=== PATIENT | male | born 1960 | race Caucasian/White ===

== ENCOUNTER 2020-11-09 00:24 | Outpatient (CLI) | payer BC, SELFPAY ==
[2020-11-09 19:18] LABS: SARS-CoV-2 RNA PCR Negative
== END 2020-11-09 00:25 | disposition home or self-care (01) ==
LOC: ANHCOVIDDT 00:28
PROVIDERS: PCP Family Medicine; Visit Provider Internal Medicine Gastroenterology
DX: Z01.812 Encounter for preprocedural laboratory examination (principal); Z20.822 Contact with and (suspected) exposure to COVID-19
CPT/HCPCS: C9803; U0003; U0005

== ENCOUNTER 2020-11-12 02:00 | Day surgery (SDC) | payer BC, SELFPAY ==
[2020-11-04 08:13] VITALS: BMI 29.2
[2020-11-12 11:31] VITALS: BP 120/82; PULSE 64; RESP 18; TEMP 36.8; O2SAT 96; BMI 29.1
[2020-11-12] MEDS: LACTATED RINGERS 1,000 ML 150 ML IV CONT (11:48)
--- NOTE | 2020-11-12 11:59 | WPDANESEPPF ---
Anes - Initial Pre Proc Eval Procedure: Operation Date: 11/12/20 12:45 Proposed Procedures p Esophagogastroduodenoscopy & Colonoscopy - Adam Nino MD Date/Time: 11/12/20 11:59 Surgeon: Adam Nino MD Pre Op Diagnosis: GERD,Abdominal Pain, Loose Stools Patient Data Age: 60 Gender: M Height: 6 ft Weight: 97.5 kg Last Vital Signs Temp 98.2 F 11/12/20 11:31 Pulse 64 11/12/20 11:31 Resp 18 11/12/20 11:31 BP 120/82 11/12/20 11:31 Pulse Ox 96 11/12/20 11:31 Allergies Allergy/AdvReac Type Severity Reaction Status Date / Time No Known Allergies Allergy Mild Verified 11/12/20 11:30 Home Medications Medication Instructions Recorded Confirmed Type metoprolol succinate 50 mg capsule 50 mg PO DAILY 12/11/19 11/12/20 History sprinkle, ext. release 24 hr rosuvastatin 10 mg tablet 20 mg PO DAILY tablet 03/31/20 11/04/20 History finasteride 5 mg tablet 5 mg PO DAILY #90 tablet 06/22/20 11/04/20 Rx tadalafil 5 mg tablet See Rx Instructions .ROUTE 07/15/20 11/04/20 Rx .COMPLEX #30 tablet omeprazole 40 mg capsule,delayed 40 mg PO DAILY #90 cap 07/21/20 11/04/20 Rx release sodium,potassium,mag sulfates See Rx Instructions .ROUTE 11/03/20 Rx [Suprep Bowel Prep Kit] .COMPLEX #1 ml Patient hx anesthesia problems: none Family hx anesthesia problems: none PMFSH Past Medical History Medical History (Updated 11/01/20 @ 15:37 by ITALO SalgueroN-C) Arthritis Benign prostatic hyperplasia with nocturia Encounter for screening colonoscopy Gastro-esophageal reflux disease without esophagitis High cholesterol Hypertension Mitral valve prolapse VINAY on CPAP Other and unspecified hyperlipidemia Surgical History Surgical History History of cholecystectomy (Unknown) 1990s Family History Family History Sibling Family history of malignant melanoma Family history of malignant neoplasm Father Family history of malignant neoplasm of esophagus Family history of malignant neoplasm Other Diabetes mellitus Social History Social History Smoking status: Never smoker Second hand tobacco smoke exposure: No Alcohol intake: current Alcohol use details: socially Substance use: never Substance use type: does not use Living arrangements: alone Gender identity (if verbalized by the patient): Male Spiritual care concerns: No Anes - Eval Final PreProcedure Day of Procedure 11/12/20 11:59 Patient weight: obese Heart: regular rate and rhythm Lungs: clear to auscultation Airway: Mallampati scale class III Neurological: alert and oriented Last oral intake: >/= 8 hours ASA classification: III Emergent: no Anesthetic plan: proceed Anesthesia type and monitoring: general GIVS and standard monitoring Informed Consent: The patient's anesthetic plan and its attendant risks and benefits were discussed with the patient/family/POA. Questions were solicited and answers provided to the satisfaction of the patient/family/POA.
--- NOTE | 2020-11-12 12:08 | WPDHPUPDATE1 ---
History and Physical Update Update Date/Time: 11/12/20 12:08 History and Physical has been reviewed, including an updated exam of the patient. There are NO changes in the patient's condition. Risks, benefits, and alternatives have been discussed and questions answered. Patient agrees to proceed with procedure.
[2020-11-12 12:32] VITALS: BP 110/72; PULSE 64; RESP 21; O2SAT 97
[2020-11-12 12:42] VITALS: BP 105/71; PULSE 60; RESP 15; O2SAT 97
[2020-11-12 12:52] VITALS: BP 106/70; PULSE 60; RESP 22; O2SAT 97
== END 2020-11-12 13:23 | disposition home or self-care (01) ==
PROVIDERS: PCP Family Medicine; Visit Provider Internal Medicine Gastroenterology
PROC: 0DJ08ZZ Inspection of Upper Intestinal Tract, Via Natural or Artificial Opening Endoscopic (ICD-10-PCS; CPT 43235; principal; 2020-11-12 12:45)
DX: Z12.11 Encounter for screening for malignant neoplasm of colon (principal); K57.30 Diverticulosis of large intestine without perforation or abscess without bleeding; K64.8 Other hemorrhoids; K29.50 Unspecified chronic gastritis without bleeding; K44.9 Diaphragmatic hernia without obstruction or gangrene; K21.9 Gastro-esophageal reflux disease without esophagitis; N40.0 Benign prostatic hyperplasia without lower urinary tract symptoms; E78.00 Pure hypercholesterolemia, unspecified; I10 Essential (primary) hypertension; I34.1 Nonrheumatic mitral (valve) prolapse; G47.33 Obstructive sleep apnea (adult) (pediatric); E78.5 Hyperlipidemia, unspecified; E66.9 Obesity, unspecified; Z68.29 Body mass index [BMI] 29.0-29.9, adult
CPT/HCPCS: 45380; 43239; 88305; J2704; J7120

== ENCOUNTER 2021-09-12 01:36 | Day surgery (SDC) | payer BC, SELFPAY ==
[2021-08-25 14:46] VITALS: BMI 29.7
[2021-09-12 11:16] VITALS: BMI 30.3
[2021-09-12] MEDS: LACTATED RINGERS 1,000 ML 150 ML IV CONT (11:17)
--- NOTE | 2021-09-12 12:15 | WPDANESEPPF ---
Anes - Initial Pre Proc Eval Procedure: Operation Date: 09/12/21 12:30 Proposed Procedures p Esophagogastroduodenoscopy - Adam Nino MD Date/Time: 09/12/21 12:15 Surgeon: Adam Nino MD Pre Op Diagnosis: GERD Patient Data Age: 61 Gender: M Height: 1.83 m Weight: 101.4 kg Allergies Allergy/AdvReac Type Severity Reaction Status Date / Time No Known Allergies Allergy Mild Verified 09/12/21 11:14 Home Medications Medication Instructions Recorded Confirmed Type rosuvastatin 10 mg tablet 20 mg PO DAILY tablet 03/31/20 09/12/21 History omeprazole 40 mg capsule,delayed 40 mg PO DAILY #90 cap 04/20/21 09/12/21 Rx release finasteride 5 mg tablet 5 mg PO DAILY #90 tablet 07/07/21 09/12/21 Rx metoprolol succinate 25 mg 25 mg PO DAILY 07/21/21 09/12/21 History tablet,extended release 24 hr dicyclomine 10 mg capsule 10 mg PO BID PRN #60 cap 08/18/21 09/12/21 Rx tadalafil 5 mg tablet 5 mg PO DAILY #30 tablet 08/22/21 09/12/21 Rx Patient hx anesthesia problems: none Family hx anesthesia problems: none Results Review: All pre-operative results and documents have been reviewed as part of the pre-operative evaluation. [facility] Past Medical History Medical History (Updated 08/18/21 @ 12:10 by Adam Nino MD) Abdominal pain Arthritis Benign prostatic hyperplasia with nocturia Bloating Colon cancer screening Colon, diverticulosis Gastro-esophageal reflux disease without esophagitis High cholesterol Hypertension IBS (irritable bowel syndrome) Mitral valve prolapse VINAY on CPAP Osteoarthritis Other and unspecified hyperlipidemia Prediabetes Surgical History Surgical History History of cholecystectomy (Unknown) 1990s Family History Family History Sibling Family history of malignant melanoma Family history of malignant neoplasm Father Family history of malignant neoplasm of esophagus Family history of malignant neoplasm Other Diabetes mellitus Social History Social History Second hand tobacco smoke exposure: No Alcohol intake: current Alcohol use details: socially Substance use: never Substance use type: does not use Living arrangements: with family Gender identity (if verbalized by the patient): Male Spiritual care concerns: No Anes - Eval Final PreProcedure Day of Procedure 09/12/21 12:15 Patient weight: obese Heart: regular rate and rhythm Lungs: clear to auscultation Airway: Mallampati scale class III Neurological: alert and oriented Last oral intake: >/= 8 hours ASA classification: III Emergent: no Anesthetic plan: proceed Anesthesia type and monitoring: general and standard monitoring Results Review: All pre-operative results and documents have been reviewed as part of the pre-operative evaluation. Informed Consent: The patient's anesthetic plan and its attendant risks and benefits were discussed with the patient/family/POA. Questions were solicited and answers provided to the satisfaction of the patient/family/POA.
[2021-09-12 12:41] VITALS: BP 115/80; PULSE 63; RESP 14; O2SAT 97
[2021-09-12 12:51] VITALS: BP 110/81; PULSE 55; RESP 14
[2021-09-12 13:01] VITALS: BP 119/77; PULSE 54; RESP 14
== END 2021-09-12 13:10 | disposition home or self-care (01) ==
PROVIDERS: PCP Family Medicine; Visit Provider Internal Medicine Gastroenterology
PROC: 0DJ08ZZ Inspection of Upper Intestinal Tract, Via Natural or Artificial Opening Endoscopic (ICD-10-PCS; CPT 43235; principal; 2021-09-12 12:30)
DX: R14.0 Abdominal distension (gaseous) (principal); I10 Essential (primary) hypertension; E78.00 Pure hypercholesterolemia, unspecified; K21.9 Gastro-esophageal reflux disease without esophagitis; I34.1 Nonrheumatic mitral (valve) prolapse; K58.9 Irritable bowel syndrome, unspecified; N40.1 Benign prostatic hyperplasia with lower urinary tract symptoms; R35.1 Nocturia; E78.49 Other hyperlipidemia; R73.03 Prediabetes; E66.9 Obesity, unspecified; Z68.30 Body mass index [BMI] 30.0-30.9, adult
CPT/HCPCS: 43235; J2704; J7120

== ENCOUNTER 2021-09-28 12:31 | Outpatient (CLI) | payer BC, SELFPAY ==
--- NOTE | ~2021-09-28 | CT_ITS ---
EXAMINATION: CT soft tissue neck w con DATE: 09/28/2021 12:56 INDICATION: Localized swelling, mass, and lump, unspecified. TECHNIQUE: Computed tomography (CT) of the neck was performed with 75 mL Omnipaque-350 intravenous co ntrast. Automated exposure control and iterative reconstruction technique were employed. The dose-sona gth product was 587.56 mGy-cm. COMPARISON: Neck CT 08/08/2004 FINDINGS: There are no pathologically enlarged lymph nodes. There is mild plaque in the proximal inte rnal carotid arteries with 0% stenosis relative to normal distal artery lumen diameters. There is mil d mucosal thickening in the ethmoid sinuses. The mastoid air cells are normal. There is mild cervical spondylosis. IMPRESSION: 1. No abnormal neck mass or lymphadenopathy. Reviewed, dictated and finalized at location A. LERATOR TECHNICIAN
[2021-09-28 12:50] LABS: Estimated Glomerular Filt Rate > 60
== END 2021-09-28 12:32 | disposition home or self-care (01) ==
LOC: ANHIMG 12:36
PROVIDERS: PCP Family Medicine; Visit Provider Nurse Practitioner Family
DX: R22.1 Localized swelling, mass and lump, neck (principal)
CPT/HCPCS: 70491; Q9967

== ENCOUNTER 2021-10-27 14:07 | Outpatient (CLI) | payer BC, SELFPAY ==
--- NOTE | ~2021-10-27 | CT_ITS ---
EXAMINATION: CT abdomen pelvis w con INDICATION: Abdominal pain and abdominal distention TECHNIQUE: Computed tomographic images of the abdomen and pelvis were obtained after the administrati on of 100 cc of Omnipaque 350 intravenous contrast. The dose-length product (DLP) was 891.70 mGy-cm. Automated exposure control and iterative reconstruction technique were employed. COMPARISON: None available FINDINGS: Minimal dependent atelectasis is present in the lung bases. The heart size is normal. The g allbladder is surgically absent. There is mild enlargement of the common bile duct and central intrah epatic ducts which is likely due to post cholecystectomy state. The liver is diffusely low in attenua tion when compared with the spleen, consistent with hepatic steatosis. There is a 5.4 x 5.3 cm hetero geneous mass of the upper pole of the spleen. The pancreas and adrenal glands are normal. There is a 2.1 cm cyst of the left kidney. The right kidney is unremarkable. No pathologically enlarged abdomina l or pelvic lymph nodes are identified. There is no free intraperitoneal gas or evidence of bowel obs truction. Colonic diverticulosis is present without evidence of diverticulitis. There is mild lumbar spondylosis. IMPRESSION: 1. No CT correlate for the patient's symptoms. 2. Indeterminate 5.4 cm mass in the upper pole of the spleen. If there is a history of malignancy, fu rther evaluation with PET versus MRI versus biopsy would be recommended. In the absence of known dennis gnancy, follow-up with MRI without and with contrast in six months is recommended. Reviewed, dictated and finalized at location F. NDER WORKER IMPRESSION: 1. No CT correlate for the patient's symptoms. 2. Indeterminate 5.4 cm mass in the upper pole of the spleen. If there is a his tory of malignancy, further evaluation with PET versus MRI versus biopsy would be recommended. In the absence of known malignancy, follow-up with MRI without and with contrast in six months is recommended.
== END 2021-10-27 14:08 | disposition home or self-care (01) ==
LOC: ANHIMG 14:09
PROVIDERS: PCP Family Medicine; Visit Provider Internal Medicine Gastroenterology
DX: R10.9 Unspecified abdominal pain (principal); R14.0 Abdominal distension (gaseous)
CPT/HCPCS: 74177; Q9967

== ENCOUNTER 2021-11-08 06:57 | Outpatient (CLI) | payer BC, SELFPAY ==
--- NOTE | ~2021-11-08 | MR_ITS ---
EXAMINATION: MR abdomen wo/w con DATE: 11/08/2021 08:33 INDICATION: Splenic mass. TECHNIQUE: Magnetic resonance imaging (MRI) of the abdomen was performed without and with 19 mL Multi Portillo intravenous contrast. Sequences included coronal T2-weighted FS FSE, coronal and axial FS FIEST A, axial T2-weighted FSE, coronal LAVA-flex, axial STIR FSE, axial DWI, axial dual-echo T1-weighted F SPGR, and axial LAVA. Postcontrast sequences included coronal LAVA-flex and a time course of axial LA VA. COMPARISON: CT abdomen and pelvis 10/27/2021, chest CT 01/26/2004 FINDINGS: There is diffuse hepatic steatosis. The gallbladder is absent. There is a 5.5 cm hyperenhancing mass in the spleen. The pancreas and adrenal glands are normal. There are cysts in the kidneys measuring u p to 2.0 cm on the left. There are no dilated loops of bowel. There are no pathologically enlarged ly mph nodes. There is no free intraperitoneal fluid. IMPRESSION: 1. 5.5 cm hyperenhancing splenic mass, new from 01/26/2004, which may be benign or malignant. PET/CT i s recommended to decide whether or not to biopsy. Reviewed, dictated and finalized at location A. ER ASSEMBLER IMPRESSION: 1. 5.5 cm hyperenhancing splenic mass, new from 01/26/2004, which may be benign or malignant. PET/CT is recommended to decide whether or not to biopsy.
== END 2021-11-08 06:58 | disposition home or self-care (01) ==
PROVIDERS: PCP Family Medicine; Visit Provider Nurse Practitioner Family
DX: R93.5 Abnormal findings on diagnostic imaging of other abdominal regions, including retroperitoneum (principal)
CPT/HCPCS: 74183; A9577

== ENCOUNTER 2021-12-01 08:29 | Outpatient (CLI) | payer BC, SELFPAY ==
--- NOTE | ~2021-12-01 | CT_ITS ---
EXAMINATION:CT diagnostic chest w con DATE: 12/01/2021 09:01 INDICATION: Splenic mass. TECHNIQUE: Computed tomography (CT) of the chest was performed with 75 mL Omnipaque 350 intravenous c ontrast. Automated exposure control and iterative reconstruction technique were employed. The dose-le ngth product (DLP) was 323.84 mGy-cm. COMPARISON: CT abdomen and pelvis 10/27/2021, MR abdomen 11/08/21, chest CT 01/26/04 FINDINGS: There is mild scarring at left lung apex. There is mild atelectasis bilaterally. Calcified bilateral lung nodules are consistent with old granulomatous disease. No pleural effusion. The heart size is normal. No pericardial effusion. There is ectasia of ascending aorta measuring 4.3 cm. There is a 5.2 cm hyperenhancing mass in the spleen. There are changes of cholecystectomy. There are bridgi ng endplate osteophytes at multiple levels in the spine, consistent with diffuse idiopathic skeletal hyperostosis (DISH). IMPRESSION: 1. 5.2 cm hyperenhancing splenic mass, new from 01/26/2004, which may be benign or malignant. PET/CT i s recommended to decide whether or not to biopsy. Reviewed, dictated and finalized at location A. EL DRIER IMPRESSION: 1. 5.2 cm hyperenhancing splenic mass, new from 01/26/2004, which may be benign or malignant. PET/CT is recommended to decide whether or not to biopsy.
[2021-12-01 08:53] LABS: Estimated Glomerular Filt Rate > 60
== END 2021-12-01 08:30 | disposition home or self-care (01) ==
LOC: ANHIMG 08:33
PROVIDERS: PCP Family Medicine; Visit Provider Internal Medicine Hematology & Oncology
DX: R16.1 Splenomegaly, not elsewhere classified (principal)
CPT/HCPCS: 71260; Q9967

== ENCOUNTER 2022-04-18 18:04 | Emergency (ER) | payer BC, SELFPAY ==
[2022-04-18 18:11] VITALS: BP 134/81; PULSE 84; RESP 16; TEMP 36.5; O2SAT 97
--- NOTE | 2022-04-18 18:15 | ED.SKABFB ---
HPI - Skin/Abscess/Foreign Bdy General Chief complaint: Skin/Abscess/Foreign Body Stated complaint: Rash Time Seen by Provider: 04/18/22 18:16 Source: patient, RN notes reviewed and old records reviewed Mode of arrival: ambulatory Limitations: no limitations History of Present Illness HPI narrative: 62 year old male who presents to [facility] with complaints of rash to his upper chest across and into neck and right upper back small red raised lesion and right lower back red raised lesion. Rash is stated to be itchy, . Patient reports that he was mowing yesterday for 2 hours and noted rash last evening. may of been exposed to some environmental element. Patient denies any new medications, foods, laundry soap, lotions or any soaps MD complaint: rash Onset (ago): day(s) (1) Related Data Home Medications Medication Instructions Recorded Confirmed rosuvastatin 10 mg tablet 20 mg PO DAILY 03/31/20 04/18/22 metoprolol succinate 25 mg 25 mg PO BID 09/21/21 04/18/22 tablet,extended release 24 hr Allergies Allergy/AdvReac Type Severity Reaction Status Date / Time No Known Allergies Allergy Mild Verified 04/18/22 18:16 Review of Systems Review of Systems: CONSTITUTIONAL: Denies fever, chills, or sweats. EYES: Denies visual changes, redness, or discharge. ENT: Denies rhinorrhea, congestion, sore throat, or otalgia. CARDIOVASCULAR: Denies chest pain, palpitations, or edema. RESPIRATORY: Denies cough or dyspnea. GASTROINTESTINAL: Denies abdominal pain, nausea, vomiting, or diarrhea. GENITOURINARY: Denies dysuria or hematuria. SKIN: Positive for rash and itching. MUSCULOSKELETAL: Denies back pain, joint pain, or myalgia. NEUROLOGIC: Denies headache, numbness, or weakness. PSYCHIATRIC: Denies anxiety or depression. All systems reviewed & are unremarkable except as noted in HPI and below PMFSH Past Medical History Medical History Benign prostatic hyperplasia with nocturia Colon, diverticulosis Gastro-esophageal reflux disease without esophagitis Hypertension IBS (irritable bowel syndrome) Mitral valve prolapse VINAY on CPAP Osteoarthritis Other and unspecified hyperlipidemia Prediabetes Splenic mass Surgical History Surgical History History of cholecystectomy (Unknown) 1990s Family History Family History Sibling Family history of malignant melanoma Family history of malignant neoplasm Father Family history of malignant neoplasm of esophagus Family history of malignant neoplasm Other Diabetes mellitus Social History Social History Smoking status: Never smoker Second hand tobacco smoke exposure: No Alcohol intake: current Alcohol use details: socially Substance use: never Substance use type: does not use Gender identity (if verbalized by the patient): Male Spiritual care concerns: No Comments At time of signature, agree with nursing past medical, surgical, social and family history. There is no relevant family history pertinent to the presenting complaint Exam Narrative: GENERAL: Well-appearing, well-nourished, and in no acute distress. HEAD: Normocephalic, atraumatic. EYES: PERRLA and EOMI. ENT: Nares clear, no rhinorrhea or epistaxis. Mucous membranes moist.TM's normal with good light reflex, throat pink with no lesions or exudates or tonsil swelling NECK: Supple.no lymphadenopathy CHEST: Clear to auscultation. No respiratory distress.No tachypnea, SAO2 100% on room air HEART: Regular rate and rhythm. No murmur heard. Normal peripheral pulses. ABDOMEN: Soft, nontender, nondistended, normal active bowel sounds EXTREMITIES: Normal range of motion. No edema. SKIN: Warm, dry, no rash.2 macular lesions noted to right upper and mid back, red macular papular rash noted acros
[2022-04-18 18:20] VITALS: BP 134/89; PULSE 107; RESP 20; TEMP 36.6; O2SAT 100
== END 2022-04-18 18:42 | disposition home or self-care (01) ==
PROVIDERS: Emergency Provider Registered Nurse; PCP Family Medicine
DX: L23.9 Allergic contact dermatitis, unspecified cause (principal); N40.0 Benign prostatic hyperplasia without lower urinary tract symptoms; K21.9 Gastro-esophageal reflux disease without esophagitis; I10 Essential (primary) hypertension; I34.1 Nonrheumatic mitral (valve) prolapse; G47.33 Obstructive sleep apnea (adult) (pediatric); M19.90 Unspecified osteoarthritis, unspecified site; R73.03 Prediabetes
CPT/HCPCS: 99213; G0463

== ENCOUNTER 2022-06-26 11:18 | Emergency (ER) | payer BC, SELFPAY ==
[2022-06-26 11:34] VITALS: BP 126/78; PULSE 62; RESP 18; TEMP 36.6; O2SAT 96
--- NOTE | 2022-06-26 11:57 | ED.URI ---
HPI - URI/Sore Throat General Chief Complaint: Neck Pain/Injury Stated Complaint: Sore Throat,Neck Swelling Time Seen by Provider: 06/26/22 11:57 Source: patient, RN notes reviewed and old records reviewed Mode of arrival: ambulatory Limitations: no limitations History of Present Illness HPI Narrative: 62 year old male with complaints of sore throat and neck swelling since yesterday morning with tenderness along right jaw. Patient reports that last Sunday his teeth felt sore and his teeth were real sensitive to cold and hot. He reports that he thought maybe he had a bad tooth but he sees dentist regularly. Patient report that he has had progressive increase in swelling of his neck and along his jaw since yesterday morning with discomfort along right side of face and jaw area. Patient also states that his throat is sore, denies any difficulty with swallowing or any difficulty with his breathing. MD elicited complaint: sore throat and other (neck and jaw swelling) Onset (ago): day(s) (inés right sided dental discomfort starting on the ,neck and face swelling the 18) Pain scale (0-10): 9 Treatments prior to arrival: acetaminophen Related Data Home Medications Medication Instructions Recorded Confirmed rosuvastatin 10 mg tablet 20 mg PO DAILY 03/31/20 06/26/22 metoprolol succinate 25 mg 25 mg PO BID 09/21/21 06/26/22 tablet,extended release 24 hr Allergies Allergy/AdvReac Type Severity Reaction Status Date / Time No Known Allergies Allergy Mild Verified 06/26/22 12:01 Review of Systems Review of Systems: CONSTITUTIONAL: Denies fever, chills, or sweats. EYES: Denies visual changes, redness, or discharge. ENT: Denies rhinorrhea, congestion, positive for sore throat, denies otalgia.states right jaw pain CARDIOVASCULAR: Denies chest pain, palpitations, or edema. RESPIRATORY: Denies cough or acute dyspnea. GASTROINTESTINAL: Denies abdominal pain, nausea, vomiting, or diarrhea. GENITOURINARY: Denies dysuria or hematuria. SKIN: Denies rash or itching. MUSCULOSKELETAL: Denies back pain, joint pain, or myalgia. NEUROLOGIC: Denies headache, numbness, or weakness. PSYCHIATRIC: Denies anxiety or depression. All systems reviewed & are unremarkable except as noted in HPI and below [facility] Past Medical History Medical History Benign prostatic hyperplasia with nocturia Colon, diverticulosis Gastro-esophageal reflux disease without esophagitis Hypertension IBS (irritable bowel syndrome) Mitral valve prolapse VINAY on CPAP Osteoarthritis Other and unspecified hyperlipidemia Prediabetes Splenic mass Surgical History Surgical History History of cholecystectomy (Unknown) 1990s Family History Family History Sibling Family history of malignant melanoma Family history of malignant neoplasm Father Family history of malignant neoplasm of esophagus Family history of malignant neoplasm Other Diabetes mellitus Social History Social History Smoking status: Never smoker Second hand tobacco smoke exposure: No Alcohol intake: current Alcohol use details: socially Substance use: never Substance use type: does not use Gender identity (if verbalized by the patient): Male Spiritual care concerns: No Comments At time of signature, agree with nursing past medical, surgical, social and family history. There is no relevant family history pertinent to the presenting complaint Exam Narrative: GENERAL: Well-appearing, well-nourished, and in some acute distress. HEAD: Normocephalic, atraumatic. EYES: PERRLA and EOMI. ENT: Nares clear, no rhinorrhea or epistaxis. Mucous membranes moist. TMs normal bilaterally, throat swollen with uvula midline and red, unable to view tonsils, unable to open mouth
[2022-06-26] MEDS: methylPREDNISolone ACETATE 80 MG/ML VIAL IM (12:25)
== END 2022-06-26 12:30 | disposition short-term general hospital (02) ==
LOC: EXPTROY 11:21
PROVIDERS: Emergency Provider Registered Nurse; PCP Family Medicine
DX: M79.9 Soft tissue disorder, unspecified (principal); I10 Essential (primary) hypertension; I34.1 Nonrheumatic mitral (valve) prolapse; G47.33 Obstructive sleep apnea (adult) (pediatric); R73.03 Prediabetes; N40.0 Benign prostatic hyperplasia without lower urinary tract symptoms; K21.9 Gastro-esophageal reflux disease without esophagitis
CPT/HCPCS: 96372; 99213; G0463; J1040

== ENCOUNTER 2022-06-26 12:49 | Emergency (ER) | payer BC, SELFPAY ==
--- NOTE | ~2022-06-26 | CT_ITS ---
EXAMINATION: CT soft tissue neck w con DATE: 06/26/2022 15:53 INDICATION: Right-sided throat and neck pain TECHNIQUE: Computed tomography (CT) of the neck was performed with 75 mL Omnipaque-350 intravenous co ntrast. The dose-length product was 609.59 mGy-cm. COMPARISON: 09/28/2021 FINDINGS: The thyroid gland is unremarkable. Enlarged, edematous right submandibular gland with surrounding inf lammatory change and surrounding prominent but not pathologically enlarged lymph nodes. The parotid g lands are symmetric. There is no cervical lymphadenopathy. There are no masses identified. The superior mediastinum is unremarkable. The airway is unremarkable. Parapharyngeal and pre-glottic fat planes are preserved. Normally enhancing neck arteries. The orbits are unremarkable. Ethmoid air cell mucosal thickening. Mild dependent atelectasis. Apical scarring. There is cervical spondy losis. IMPRESSION: 1. Infectious/inflammatory change in the right submandibular gland. 2. No other acute finding in the neck. Reviewed, dictated and finalized at location K.
[2022-06-26 13:16] VITALS: BP 143/76; PULSE 69; RESP 20; TEMP 36.8; O2SAT 95
[2022-06-26 14:00] VITALS: BP 137/80; PULSE 63; RESP 14; O2SAT 96
[2022-06-26 14:16] LABS: Basophils Percent Auto 0.6 % (0.2-1.2); Eosinophils Percent Auto 0.6 % (0-4.4); Hematocrit 44.5 % (42.0-52.0); Hemoglobin 15.1 g/dL (14.0-18.0); Immature Granulocyte Absolute 0.01 K/mm3 (0.00-0.031); Immature Granulocyte Percent A 0.1 % (0-0.5); Immature Platelet Fraction Pct 2.3 % (0.9-11.2); Lymphocytes Absolute Auto 0.97 K/mm3 (0.9-3.2); Lymphocytes Percent Auto 13.6 % (18.3-44.2); Mean Corpuscular HGB Conc 33.9 g/dl (32-36); Mean Corpuscular Hemoglobin 30.1 pg (26-34); Mean Corpuscular Volume 88.6 fl (80-100); Monocytes Absolute Auto 0.6 K/mm3 (0.1-0.6); Neutrophils Absolute Auto 5.5 K/mm3 (1.3-6.7); Neutrophils Percent Auto 77.1 % (45.5-73.1); Platelet Count Result 141 k/mm3 (150-375); Red Blood Count 5.02 M/mm3 (4.6-6.20); Red Cell Distribution Width 13.2 % (11.5-14.5); White Blood Count 7.1 K/mm3 (4.5-10.0)
--- NOTE | 2022-06-26 14:19 | ED.GENADULT ---
HPI - General Adult General Chief complaint: Neck Pain/Injury Stated complaint: right sided neck swelling Time Seen by Provider: 06/26/22 13:51 Source: RN notes reviewed History of Present Illness HPI narrative: Patient presents emergency department from urgent care for right-sided neck swelling and pain. States symptoms initially began approximately a week ago where he had pain in his right side of his neck going up into his right ear and into his jaw states he was seen by his PCP at that time was placed on antibiotics and steroids with improvement of the symptoms however returned 2 days ago states the pain is progressively gotten worse and that it does hurt to swallow states he is able to tolerate his own secretions he notes no shortness of breath states has had no fevers or chills states pain does radiate up into his ear and into his neck and feels a firmness in the right side of his neck he denies any chest pain patient was seen at the urgent care referred to the ER for further evaluation he was given a IM injection of Solu-Medrol at the urgent care Related Data Home Medications Medication Instructions Recorded Confirmed rosuvastatin 10 mg tablet 20 mg PO DAILY 03/31/20 06/26/22 metoprolol succinate 25 mg 25 mg PO BID 09/21/21 06/26/22 tablet,extended release 24 hr Allergies Allergy/AdvReac Type Severity Reaction Status Date / Time No Known Allergies Allergy Mild Verified 06/26/22 12:01 Review of Systems Review of Systems: Gen.: Denies fevers or chills Eyes: Denies eye pain or visual change ENT: See HPI Respiratory: Denies shortness of breath or cough CV: Denies chest pain or palpitations GI: Denies abdominal pain nausea, emesis Musculoskeletal: Denies back pain or muscle pain Neuro: Denies numbness, tingling, weakness or focal weakness Skin: Denies rash Except as documented, all other systems reviewed and negative [facility] Past Medical History Medical History Benign prostatic hyperplasia with nocturia Colon, diverticulosis Gastro-esophageal reflux disease without esophagitis Hypertension IBS (irritable bowel syndrome) Mitral valve prolapse VINAY on CPAP Osteoarthritis Other and unspecified hyperlipidemia Prediabetes Splenic mass Surgical History Surgical History History of cholecystectomy (Unknown) 1990s Family History Family History Sibling Family history of malignant melanoma Family history of malignant neoplasm Father Family history of malignant neoplasm of esophagus Family history of malignant neoplasm Other Diabetes mellitus Social History Social History Smoking status: Never smoker Second hand tobacco smoke exposure: No Alcohol intake: current Alcohol use details: socially Substance use: never Substance use type: does not use Gender identity (if verbalized by the patient): Male Spiritual care concerns: No Exam Narrative: APPEARANCE: No acute distress, nontoxic, resting in bed EYES: EOMI HEENT: Normocephalic, atraumatic, TMs clear bilaterally nares patent, oral mucosa moist erythema exudate of posterior pharynx, no sublingual tenderness tender to palpation over the right parotid region in the right lateral neck with firmness palpated no overlying erythema tolerating own secretions voice normal RESPIRATORY: No respiratory distress Clear to auscultation bilaterally with no rhonchi wheezing or rales. CARDIOVASCULAR: Regular rate and rhythm without murmurs rubs or gallops. ABDOMINAL: Soft, nontender, nondistended, no rebound or guarding MUSCULOSKELETAl: Moves all extremities. No clubbing, cyanosis or edema. NEURO: Awake and alert. Following commands, speech normal, no focal deficits SKIN:: Warm, dry. No rashes lesions or abrasions PSYCHIATRIC: Normal a
[2022-06-26 14:29] LABS: Alanine Aminotransferase 29 U/L (6-50); Albumin Level 4.2 g/dL (3.5-5.1); Alkaline Phosphatase 50 U/L (38-126); Anion Gap 9 mmol/L (8-16); Aspartate Amino Transferase 21 U/L (17-59); Bilirubin,Total 0.7 mg/dL (0.2-1.3); Blood Urea Nitrogen 12 mg/dL (9-20); Calcium 8.9 mg/dL (8.4-10.2); Carbon Dioxide 27 mmol/L (22-30); Chloride 103 mmol/L (98-107); Estimated CRCL calculation 114 ml/min; Estimated Glomerular Filt Rate > 60; Glucose 130 mg/dL (65-110); Potassium 3.9 mmol/L (3.4-5.0); Sodium 139 mmol/L (137-145)
[2022-06-26 15:00] VITALS: BP 150/89; PULSE 61; RESP 16; O2SAT 97
[2022-06-26 16:00] VITALS: BP 156/98; PULSE 61; RESP 16; O2SAT 98
--- NOTE | 2022-06-26 17:10 | WPDCN ---
Assessment and Plan Assessment and plan (1) Neck infection: Code(s): L08.9 - Local infection of the skin and subcutaneous tissue, unspecified Status: Acute Assessment and Plan: Clinda high dose, medrol dose tim, follow up with me in the next 48-72 hours. ER with any urgent/emergent worsening, airway issues, patient voiced understanding and agreed. HPI Data of Consult Date/Time: 06/26/22 17:10 Primary Care Provider: Christiano Salinas MD Consult Narrative Reason for consult: neck celluitis Narrative: Juan Diego Bartholomew is a 62 year old male with a recent episode of right neck infection. Contrasted CT demonstrates a right sided submandibular gland region cellulitis/fat stranding. No identifiable abscess. Patient sees the dentist regularly. Review of Systems Review of Systems: All systems reviewed & are unremarkable except as noted in HPI and below PMFSH Past Medical History Medical History Benign prostatic hyperplasia with nocturia Colon, diverticulosis Gastro-esophageal reflux disease without esophagitis Hypertension IBS (irritable bowel syndrome) Mitral valve prolapse VINAY on CPAP Osteoarthritis Other and unspecified hyperlipidemia Prediabetes Splenic mass Surgical History Surgical History History of cholecystectomy (Unknown) 1990s Family History Family History Sibling Family history of malignant melanoma Family history of malignant neoplasm Father Family history of malignant neoplasm of esophagus Family history of malignant neoplasm Other Diabetes mellitus Social History Social History Smoking status: Never smoker Second hand tobacco smoke exposure: No Alcohol intake: current Alcohol use details: socially Substance use: never Substance use type: does not use Gender identity (if verbalized by the patient): Male Spiritual care concerns: No Meds Home Medications and Allergies Home Medications Medication Instructions Recorded Confirmed Type rosuvastatin 10 mg tablet 20 mg PO DAILY 03/31/20 06/26/22 History metoprolol succinate 25 mg 25 mg PO BID 09/21/21 06/26/22 History tablet,extended release 24 hr tadalafil 5 mg tablet 5 mg PO DAILY #30 tabs 11/23/21 06/26/22 Rx finasteride 5 mg tablet 5 mg PO DAILY #90 tabs 01/09/22 06/26/22 Rx omeprazole 40 mg capsule,delayed 40 mg PO DAILY #90 caps 04/03/22 06/26/22 Rx release Allergies Allergy/AdvReac Type Severity Reaction Status Date / Time No Known Allergies Allergy Mild Verified 06/26/22 12:01 Vital Signs Vital Signs - 24 hr 06/26/22 13:16 Temperature 36.8 C Pulse Rate 69 Respiratory Rate 20 Blood Pressure 143/76 H Pulse Oximetry 95 Oxygen Delivery Room Air Exam Narrative: Scant mucopurulence in the right oral cavity, possible caries, no bulge or location to I and D. right sm neck edema/induration. Results Labs CBC & Chem 7: 06/26/22 14:08 06/26/22 14:08 Labs: Short CBC 06/26/22 Range/Units 14:08 WBC 7.1 (4.5-10.0) K/mm3 Hgb 15.1 (14.0-18.0) g/dL Hct 44.5 (42.0-52.0) % Plt Count 141 L (150-375) k/mm3 BMP 06/26/22 14:08 Sodium 139 Potassium 3.9 Chloride 103 Carbon Dioxide 27 BUN 12 Creatinine 0.70 Glucose 130 H Calcium 8.9 Liver Function 06/26/22 Range/Units 14:08 Total Bilirubin 0.7 (0.2-1.3) mg/dL AST 21 (17-59) U/L ALT 29 (6-50) U/L Alkaline Phosphatase 50 (38-126) U/L Albumin 4.2 (3.5-5.1) g/dL
[2022-06-26] MEDS: CLINDAMYCIN HCL 150 MG CAP 450 MG PO (17:18)
[2022-06-26 17:30] VITALS: BP 149/96; PULSE 70; RESP 20; O2SAT 98
== END 2022-06-26 17:30 | disposition home or self-care (01) ==
PROVIDERS: Emergency Provider Emergency Medicine; PCP Family Medicine
DX: L08.9 Local infection of the skin and subcutaneous tissue, unspecified (principal); I10 Essential (primary) hypertension; E78.5 Hyperlipidemia, unspecified; N40.1 Benign prostatic hyperplasia with lower urinary tract symptoms; R35.1 Nocturia; R73.03 Prediabetes; K21.9 Gastro-esophageal reflux disease without esophagitis; K58.9 Irritable bowel syndrome, unspecified; M19.90 Unspecified osteoarthritis, unspecified site; G47.33 Obstructive sleep apnea (adult) (pediatric)
CPT/HCPCS: 36415; 70491; 80053; 85025; 85055; 96372; 99284; A9270; J1040; Q9967

== ENCOUNTER 2022-09-06 14:02 | Outpatient (CLI) | payer BC, SELFPAY ==
--- NOTE | ~2022-09-06 | CT_ITS ---
EXAMINATION: CT abdomen wo/w con DATE: 09/06/2022 15:01 INDICATION: Splenic mass. TECHNIQUE: Computed tomography (CT) of the abdomen was performed without and with 100 mL Omnipaque 35 0 intravenous contrast. Automated exposure control and iterative reconstruction technique were employ ed. The dose-length product was 1208.66 mGy-cm. COMPARISON: CT abdomen and pelvis 10/27/2021, abdomen MRI 11/08/21, chest CT 01/26/04 FINDINGS: The visualized portions of the lung bases demonstrate mild atelectasis. There is mild bronc hiectasis in right middle lobe and right lower lobe. The heart size is normal. No pericardial effusio n. There is diffuse hepatic steatosis. There are changes of cholecystectomy. There is a 5.4 cm mass i n the spleen that is predominantly isoenhancing to the spleen with internal areas of hypoenhancement. The pancreas, adrenal glands, and right kidney are normal. There is a 2.1 cm cyst in left kidney. Th ere are no dilated loops of bowel. There is diverticulosis of the colon without evidence of diverticu litis. There are bridging endplate osteophytes at multiple levels in the spine, consistent with diffu se idiopathic skeletal hyperostosis (DISH). IMPRESSION: 1. 5.4 cm splenic mass, stable from 10/27/21 and new from 01/26/04, most likely a hamartoma. Reviewed, dictated and finalized at location A. 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
== END 2022-09-06 14:03 | disposition home or self-care (01) ==
PROVIDERS: PCP Family Medicine; Visit Provider Internal Medicine Hematology & Oncology
DX: R16.1 Splenomegaly, not elsewhere classified (principal)
CPT/HCPCS: 74170; Q9967

== ENCOUNTER 2022-12-08 09:13 | Outpatient (CLI) | payer OTHER, SELFPAY ==
[2022-12-08 09:27] LABS: Basophils Absolute Auto 0.1 K/mm3 (0.0-0.1); Basophils Percent Auto 0.9 % (0.2-1.2); Eosinophils Absolute Auto 0.1 K/mm3 (0-0.3); Eosinophils Percent Auto 1.3 % (0-4.4); Hematocrit 44.3 % (42.0-52.0); Immature Granulocyte Absolute 0.02 K/mm3 (0.00-0.031); Immature Granulocyte Percent A 0.3 % (0-0.5); Lymphocytes Absolute Auto 1.14 K/mm3 (0.9-3.2); Lymphocytes Percent Auto 16.4 % (18.3-44.2); Mean Corpuscular HGB Conc 33.9 g/dl (32-36); Mean Corpuscular Hemoglobin 30.1 pg (26-34); Mean Corpuscular Volume 88.8 fl (80-100); Mean Platelet Volume 9.3 fl (7.4-10.4); Monocytes Absolute Auto 0.5 K/mm3 (0.1-0.6); Monocytes Percent Auto 6.6 % (2.6-8.5); Neutrophils Absolute Auto 5.2 K/mm3 (1.3-6.7); Neutrophils Percent Auto 74.5 % (45.5-73.1); Platelet Count Result 145 k/mm3 (150-375); Red Blood Count 4.99 M/mm3 (4.6-6.20); Red Cell Distribution Width 13.1 % (11.5-14.5)
[2022-12-08 11:05] LABS: Alanine Aminotransferase 30 U/L (6-50); Albumin Level 4.6 g/dL (3.5-5.1); Alkaline Phosphatase 46 U/L (38-126); Anion Gap 8 mmol/L (8-16); Aspartate Amino Transferase 27 U/L (17-59); Bilirubin,Total 0.5 mg/dL (0.2-1.3); Blood Urea Nitrogen 28 mg/dL (9-20); Calcium 9.4 mg/dL (8.4-10.2); Carbon Dioxide 30 mmol/L (22-30); Chloride 104 mmol/L (98-107); Estimated Glomerular Filt Rate > 60; Glucose 123 mg/dL (65-110); Lactate Dehydrogenase 231 U/L (120-246); Potassium 4.6 mmol/L (3.4-5.0); Sodium 142 mmol/L (137-145)
== END 2022-12-08 09:14 | disposition home or self-care (01) ==
LOC: ANHLAB 09:15
PROVIDERS: PCP Family Medicine; Visit Provider Internal Medicine Hematology & Oncology
DX: R16.1 Splenomegaly, not elsewhere classified (principal)
CPT/HCPCS: 36415; 80053; 83615; 85025

== ENCOUNTER 2023-03-29 10:32 | Outpatient (CLI) | payer MEDICARE, OTHER, SELFPAY ==
[2023-03-29 19:38] LABS: Alanine Aminotransferase 27 U/L (6-50); Albumin Level 4.2 g/dL (3.5-5.1); Alkaline Phosphatase 41 U/L (38-126); Anion Gap 5 mmol/L (8-16); Aspartate Amino Transferase 33 U/L (17-59); Bilirubin,Total 0.7 mg/dL (0.2-1.3); Blood Urea Nitrogen 15 mg/dL (9-20); Calcium 8.9 mg/dL (8.4-10.2); Carbon Dioxide 35 mmol/L (22-30); Chloride 99 mmol/L (98-107); Estimated Glomerular Filt Rate > 60; Glucose 111 mg/dL (65-110); Potassium 4.3 mmol/L (3.4-5.0); Sodium 139 mmol/L (137-145)
[2023-03-29 20:35] LABS: Hemoglobin A1C 6.1 % (<5.7)
== END 2023-03-29 10:33 | disposition home or self-care (01) ==
LOC: ANHGOSHLAB 10:35
PROVIDERS: PCP Family Medicine; Visit Provider Family Medicine
DX: R73.03 Prediabetes (principal); I10 Essential (primary) hypertension
CPT/HCPCS: 36415; 80053; 83036

== ENCOUNTER 2024-06-17 14:23 | Outpatient (CLI) | payer MEDICARE, OTHER, SELFPAY ==
--- NOTE | ~2024-06-17 | CT_ITS ---
EXAMINATION: CT LE LT wo con DATE: 06/17/2024 14:58 INDICATION: Left hip osteoarthritis for preoperative planning TECHNIQUE: High resolution computed tomography (CT) of the left lower extremity from the hip through the ankle was performed without intravenous contrast. Additional sagittal and coronal reconstructions were performed. Automated exposure control and iterative reconstruction technique were employed. The dose-length product was 1786.80 mGy-cm. COMPARISON: Radiograph dated 05/19/2024 12/26/2018 and MRI dated 09/22/1960 FINDINGS: Bone alignment is normal. No fracture or suspected osteonecrosis. Severe osteoarthritis at the medial compartment of the right knee with subarticular eburnation. Additional osteoarthritis with mild to m oderate joint space narrowing and small marginal osteophytes in the lateral and patellofemoral compar tments. There is associated small right knee joint effusion. Moderate-sized Pablo's cyst at the left popliteal fossa. Mild osteoarthritis at the left hip and ankle. Moderate-sized Achilles calcaneal spu r. Visualized pelvis is unremarkable with no pathologically enlarged left pelvic or inguinal lymphade nopathy. IMPRESSION: 1. Severe medial compartment predominant tricompartmental osteoarthritis at the left knee Reviewed, dictated and finalized at location B.
[2024-06-17 15:16] LABS: Hematocrit 44.8 % (42.0-52.0); Hemoglobin 15.2 g/dL (14.0-18.0)
[2024-06-17 15:27] LABS: Albumin Level 4.6 g/dL (3.5-5.1); Estimated Glomerular Filt Rate > 60; Glucose 108 mg/dL (65-110)
[2024-06-17 15:49] LABS: Hemoglobin A1C 6.4 % (<5.7)
== END 2024-06-17 14:24 | disposition home or self-care (01) ==
PROVIDERS: PCP Family Medicine; Visit Provider Orthopaedic Surgery
DX: M17.12 Unilateral primary osteoarthritis, left knee (principal); I10 Essential (primary) hypertension; R73.03 Prediabetes; E78.5 Hyperlipidemia, unspecified
CPT/HCPCS: 36415; 73700; 82040; 82565; 82947; 83036; 85014; 85018

== ENCOUNTER 2024-07-23 10:06 | Outpatient (CLI) | payer MEDICARE, OTHER, SELFPAY ==
--- NOTE | ~2024-07-23 | CT_ITS ---
Non-contrast CT scan of the Abdomen and Pelvis Clinical indication: Dysuria Technique: 2.5 mm axial scans were obtained through the abdomen and pelvis without intravenous or or al contrast. Dose reduction technique was used on this scan by utilizing automated exposure control a nd iterative reconstruction technique. The dose-length product (DLP) was 1314.94 mGy-cm. COMPARISON: 09/06/2022 Findings: Images through the lung bases reveal calcified right lower lobe granuloma and mild bibasil ar atelectatic change. There is no evidence of renal or ureteral calculi. The kidneys and the ureters are nondilated. Left r enal cyst is unchanged. The liver, pancreas, and adrenals appear normal. Cholecystectomy clips are present. Stable large isod ense splenic mass. There is no aortic aneurysm. There is no evidence of bowel obstruction. Images through the pelvis were performed. There is no evidence of ascites or lymphadenopathy. Urinary bladder unremarkable. Prostate gland minimally enlarged. No ascites. Impression: No significant abnormality of the system noted. Mildly enlarged prostate gland. Stable large isodense splenic mass. Reviewed, dictated and finalized at location M. Impression: No significant abnormality of the system noted. Mildly enlarged prostate gla nd. Stable large isodense splenic mass.
== END 2024-07-23 10:07 | disposition home or self-care (01) ==
PROVIDERS: PCP Family Medicine; Visit Provider Nurse Practitioner
DX: R30.0 Dysuria (principal)
CPT/HCPCS: 74176

== ENCOUNTER 2024-08-13 08:00 | Outpatient (CLI) | payer MEDICARE, OTHER, SELFPAY ==
[2024-08-13 09:16] LABS: Basophils Percent Auto 0.7 % (0.2-1.2); Eosinophils Absolute Auto 0.2 K/mm3 (0-0.3); Eosinophils Percent Auto 2.6 % (0-4.4); Hematocrit 42.9 % (42.0-52.0); Hemoglobin 14.7 g/dL (14.0-18.0); Immature Granulocyte Absolute 0.01 K/mm3 (0.00-0.031); Immature Granulocyte Percent A 0.2 % (0-0.5); Immature Platelet Fraction Pct 2.1 % (0.9-11.2); Lymphocytes Absolute Auto 1.56 K/mm3 (0.9-3.2); Lymphocytes Percent Auto 26.8 % (18.3-44.2); Mean Corpuscular HGB Conc 34.3 g/dl (32-36); Mean Corpuscular Hemoglobin 30.2 pg (26-34); Mean Corpuscular Volume 88.3 fl (80-100); Mean Platelet Volume 8.9 fl (7.4-10.4); Monocytes Absolute Auto 0.4 K/mm3 (0.1-0.6); Monocytes Percent Auto 6.9 % (2.6-8.5); Neutrophils Absolute Auto 3.7 K/mm3 (1.3-6.7); Neutrophils Percent Auto 62.8 % (45.5-73.1); Platelet Count Result 141 k/mm3 (150-375); Red Blood Count 4.86 M/mm3 (4.6-6.20); Red Cell Distribution Width 13.6 % (11.5-14.5); White Blood Count 5.8 K/mm3 (4.5-10.0)
[2024-08-13 09:25] LABS: Albumin Level 4.1 g/dL (3.5-5.1)
[2024-08-13 09:26] LABS: Anion Gap 9 mmol/L (4-12); Blood Urea Nitrogen 13 mg/dL (9-20); Calcium 9.3 mg/dL (8.4-10.2); Carbon Dioxide 26 mmol/L (22-30); Chloride 104 mmol/L (98-107); Estimated Glomerular Filt Rate > 60; Glucose 160 mg/dL (65-110); Potassium 3.9 mmol/L (3.4-5.0); Sodium 139 mmol/L (137-145)
[2024-08-13 09:36] LABS: Urine Cotinine NEGATIVE
[2024-08-13 11:41] LABS: MRSA (PCR) NOT DETECTED (NOT DETECTE)
== END 2024-08-13 08:01 | disposition home or self-care (01) ==
PROVIDERS: Anesthesiology; PCP Family Medicine; Visit Provider Orthopaedic Surgery
DX: M17.12 Unilateral primary osteoarthritis, left knee (principal); E11.9 Type 2 diabetes mellitus without complications; Z01.818 Encounter for other preprocedural examination
CPT/HCPCS: 36415; 80048; 80307; 82040; 85025; 85055; 87641

== ENCOUNTER 2024-09-09 02:19 | Day surgery (SDC) | payer MEDICARE, OTHER, SELFPAY ==
[2024-08-13 07:59] VITALS: BP 152/85; PULSE 68; RESP 16; TEMP 36.6; O2SAT 95; BMI 32.1
--- NOTE | 2024-08-13 08:03 | PC.NURSE ---
Addendum entered by Priscila Walter RN 08/13/24 08:37: ARRIVE 8:30AM ON 09/09/24 FOR SURGERY AT 10:30AM. PT RELAYS UNDERSTANDING. Original Note: Report to the Outpatient Waiting Room, entrance under the green pavilion located off [facility], at time on date . Planned Procedure Time: .? Time changes happen often and if your time is changed the preop area will call you the afternoon before. - You and your visitor will be asked to self-screen and do not enter if you have any COVID symptoms. Please call surgeon if you need to reschedule. - A mask is optional within the hospital at this time. Patients may have clear liquids (water, carbonated beverages, clear teas, apple juice) until 3 hours prior to surgery with a maximum of 20 ounces. - No food from midnight until time of surgery and no smoking. Take only the following medications with a SIP of water on the morning of surgery: METOPROLOL DO NOT STOP ANY OF YOUR OTHER PRESCRIPTION MEDICATIONS PRIOR TO SURGERY EXCEPT THE FOLLOWING Medications to discontinue per physician ____HOLD ALL NSAIDS(ALEVE) AND ALL VITAMINS/SUPPLEMENTS 7 DAYS PRE-OP PER DR MCCLELLAN Date to take last dose 09/01/24 Please no make-up, nail gambian, hairspray, perfume, deodorant, or body powder the day of surgery.? No jewelry (including any body piercings) or valuables the day of surgery, leave them at home.? Please take a shower or bath the night before, or the morning of, surgery with an antibacterial soap.? Wear comfortable, loose fitting clothing.? - Jewelry must be removed prior to entering the operating room.? Rings and piercings that are not removed may be cut off. - The hospital will not accept responsibility for valuables.? - Please leave all valuables, including medications, at home the day of surgery. If you are going home after surgery, a licensed cdl truck driver must drive you home.? - NO public transportation without another adult if you receive anesthesia. - We recommend that an adult stay with you for 24 hours following discharge. - We also recommend that you do not drive, make important decision, drink alcoholic beverages, or take any drugs that were not prescribed by your health care provider for at least 24 hours after your discharge time. Follow any additional instructions given to you from your surgeon. Telephone instructions given to ___PATIENT and asked if any additional questions and then verbalized understanding. Patient advised to call surgeon office or pre surgery nurse liaison [phone] if any additional questions.
--- NOTE | 2024-09-08 13:08 | P.PNAN_ITS ---
Anes - Eval Pre Procedure Procedure: Operation Date: 09/09/24 10:30 Proposed Procedures p Left Custom Total Knee Arthroplasty - Carroll Hopkins MD Date/Time: 09/08/24 13:08 Pre Op Diagnosis: Prim O A Lt knee Patient Data Age: 64 Gender: M Height: 1.83 m Weight: 107.5 kg Last Vital Signs Temp 97.8 F 08/13/24 07:59 Pulse 68 08/13/24 07:59 Resp 16 08/13/24 07:59 BP 152/85 H 08/13/24 07:59 Pulse Ox 95 08/13/24 07:59 O2 Del Method Room Air 08/13/24 07:59 Allergies Allergy/AdvReac Type Severity Reaction Status Date / Time No Known Allergies Allergy Mild Verified 08/27/24 09:53 Home Medications Medication Instructions Recorded Confirmed Type metoprolol succinate 25 mg 25 mg PO BID 09/21/21 08/27/24 History tablet,extended release 24 hr tadalafil 5 mg tablet 5 mg PO DAILY #30 tabs 11/23/21 08/27/24 Rx finasteride 5 mg tablet 5 mg PO DAILY #90 tabs 01/09/22 08/27/24 Rx loratadine 10 mg tablet (Claritin) 10 mg PO DAILY 10/18/23 08/27/24 History amitriptyline 10 mg tablet 10 mg PO QHS 3 months #90 tabs 02/21/24 08/27/24 Rx omeprazole 40 mg capsule,delayed 40 mg PO DAILY #90 caps 04/02/24 08/27/24 Rx release acetaminophen 500 mg capsule 1,000 mg PO Q6H PRN Pain 08/13/24 08/27/24 History ascorbate calcium (vitamin C) 500 500 mg PO DAILY 08/13/24 08/27/24 History mg capsule cholecalciferol (vitamin D3) 50 50 mcg PO BID 08/13/24 08/27/24 History mcg (2,000 unit) capsule lactobacillus combination no.4 3 6,000 mmu cells PO DAILY 08/13/24 08/27/24 History billion cell capsule (Probiotic) metformin 500 mg tablet,extended 500 mg PO HS 08/13/24 08/27/24 History release 24 hr naproxen sodium 220 mg capsule 220 mg PO Q12H PRN Pain 08/13/24 08/27/24 History (Aleve) rosuvastatin 10 mg tablet 10 mg PO HS 08/13/24 08/27/24 History solifenacin 5 mg tablet 5 mg PO DAILY 08/13/24 08/27/24 History vitamin A-vitamin C-vitamin E 1 tablet PO DAILY 08/13/24 08/27/24 History Patient hx anesthesia problems: none Family hx anesthesia problems: none Results Review: All pre-operative results and documents have been reviewed as part of the pre- operative evaluation. [facility] [place] Past Medical History Medical History Benign prostatic hyperplasia with nocturia Colon, diverticulosis Environmental allergies Erectile disorder Gastro-esophageal reflux disease without esophagitis Hyperlipidemia Hypertension IBS (irritable bowel syndrome) Mitral valve prolapse VINAY on CPAP Osteoarthritis Other and unspecified hyperlipidemia Prediabetes Splenic mass Surgical History Surgical History History of cholecystectomy (Unknown) 1990s Family History Family History Sibling Family history of malignant melanoma Family history of malignant neoplasm Father Family history of malignant neoplasm of esophagus Family history of malignant neoplasm Other Diabetes mellitus Social History Social History Smoking status: Never smoker Second hand tobacco smoke exposure: No Alcohol intake: current Alcohol use details: socially Substance use: never Substance use type: does not use Lack of Transportation: No Lack of Food: Never True Current Housing: I Have Housing Concerned About Future Housing: No Difficulty Paying Gas/Electric Bills: No Difficulty Paying for Meds: No Currently Unemployed: No Education: Bachelor's Degree Difficulty w/ Childcare or Family Care: No Living arrangements: with family Additional living arrangements comments: MOTHER Gender identity (if verbalized by the patient): Male Spiritual care concerns: No Exam Day of Procedure 09/08/24 13:08 Patient weight: overweight
[2024-09-09] VITALS (13 sets, daily range): BP systolic 128–158; BP diastolic 64–99; PULSE 76–107; RESP 12–17; TEMP 36.2–37.7; O2SAT 90–100
--- NOTE | ~2024-09-09 | XR_ITS ---
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 Subcutaneous gas with fluid and air in the joint are consistent with recent surgery. No evidence of periprosthetic fracture. IMPRESSION: 1. Recent left total knee arthroplasty. Reviewed, dictated and finalized at location B. IZE MACHINE OPERATOR
--- NOTE | 2024-09-09 07:18 | WPDHPUPDATE1 ---
History and Physical Update Update Date/Time: 09/09/24 07:18 History and Physical has been reviewed, including an updated exam of the patient. There are NO changes in the patient's condition. Risks, benefits, and alternatives have been discussed and questions answered. Patient agrees to proceed with procedure.
[2024-09-09] MEDS: ACETAMINOPHEN 500 MG TABLET 1000 MG PO (08:30)
[2024-09-09 08:58] LABS: Glucose Point of Care 145 mg/dl (65-105)
[2024-09-09] MEDS: TRANEXAMIC ACID 1,000MG/ISO100 1,000 MG/100 ML BAG 200 MG IVPB (09:00)
[2024-09-09] MEDS: LACTATED RINGERS 1,000 ML 30 ML IV CONT ×2 (09:00→12:28)
[2024-09-09] MEDS: ceFAZolin 2 GM/D5W 50 ML 2 GM/50 ML BAG IVPB ×2 (09:58→17:58)
[2024-09-09] MEDS: SODIUM CHLORIDE 0.9% IV 37.7 ML, MORPHINE SULFATE INJ (*CRX) 2 MG, ROPivacaine HCL 1% 2... INFILTRATE (10:41)
[2024-09-09] MEDS: TRANEXAMIC ACID 1,000 MG/10 ML AMPUL 1000 MG IV PUSH (11:52)
[2024-09-09 13:01] LABS: Glucose Point of Care 205 mg/dl (65-105)
--- NOTE | 2024-09-09 13:11 | P.OP_ITS ---
Procedure Note - Detailed Date of Procedure 09/09/24 Pre-op Diagnosis Left knee degenerative arthritis. Post-op Diagnosis Same Procedure Performed Custom total knee arthroplasty, left Surgeon Carroll Hopkins MD Motorcycle Delivery Driver Verónica Guzman PA-C Anesthesia General and Regional (Subsartorial block.) Findings Excellent bone quality. Optimum fit of custom implant. PCL released. Description of Procedure Preoperative antibiotics were given. The limb was prepped and draped in the usual sterile fashion with a well-padded tourniquet high on the thigh. The limb was exsanguinated and the tourniquet inflated to 300 mmHg. A longitudinal in cision was created just medial to the patella. A trivector approach to the knee was performed. Arthrotomy was taken down through the joint capsule. No significant releases were initially taken. The femur was exposed and the F1 jig was applied. The coring tool was used to remove the cartilage for the F2 jig to sit flush with the bone. The jig was pinned and the distal cut carefully taken. Caliper measurements confirmed appropriate bony resections according to the preoperative templated plan. The F4 cutting jig for the femur was applied, at the standard rotation. The AP and anterior chamfer cuts were taken. The F5 jig was applied and the posterior chamfer cuts were taken. The tibia was prepared using the T1 jig, after removing cartilage for the jig contact points. Proper alignment was checked with the alignment brant. The tibia was cut using the T1u guide. Gap balancing was performed. Gap measurements were taken and the knee was trialed. Excellent alignment and soft tissue balancing was confirmed. The posterior cruciate ligament was recessed along the proximal tibia. The patella was cut for resurfacing. Three lug holes were drilled. Meniscal remnants were removed. The trial components were assembled. Excellent range of motion and proper soft tissue balancing were confirmed throughout the full range of motion. Patellar tracking was excellent. The knee was copiously irrigated periodically throughout the procedure. The real implants were cemented into position. Excess cement was carefully removed. The wound was closed in layers with interrupted #1 Vicryl suture, 2-0 strata fix suture, 0 strata fix suture, 2-0 strata fix suture. Steri-Strips placed on the skin with the knee flexed. Sterile bulky dressing applied. The patient was brought to the recovery room in stable condition. There were no complications. Physician regional administrative assistant, Verónica Guzman PA-C, required for surgery; including patient positioning, draping, tissue retraction, maintaining instrument position, wound closure, and dressing placement. Implants Conformis Custom total knee arthroplasty. Cemented. Cruciate retaining. 7B insert. 38 mm oval patella. Estimated Blood Loss 100 Drains No Complications No immediate complications Condition Stable Disposition PACU [facility] Billing Surgery - Charge Forward: Surgery Billing
--- NOTE | 2024-09-09 14:24 | PC.NURSE ---
This patient, Juan Diego Bartholomew, was admitted to [facility] Surg Room 330-01. Patient/family oriented to hospital policies and general routines including ID bracelet, bed and alarms, visiting hours, pain management, procedures, bathroom and other care routines, personal items, smoking policy, room service/diet, and visiting hours. Information on how to activate the Rapid Response Team has been discussed. Patient/Family are encouraged to report perceived risks to care and to ask questions if they do not understand what they are told or what they should do.
[2024-09-09] MEDS: SODIUM CHLORIDE 0.9% IV 1,000 ML 125 ML IV CONT (15:32)
[2024-09-09] MEDS: ACETAMINOPHEN 325 MG TABLET 650 MG PO ×2 (15:32→17:57)
[2024-09-09] MEDS: ASPIRIN 81 MG ENTERIC TABLET PO (17:57)
[2024-09-09] MEDS: SENNA/DOCUSATE SODIUM TABLET 2 TAB PO (17:57)
[2024-09-09] MEDS: oxyCODONE/ACETAMINOPHEN (*CRX) 5-325 MG TABLET 1 TABLET PO (18:12)
[2024-09-09] MEDS: CYCLOBENZAPRINE HCL 10 MG TABLET PO (20:35)
[2024-09-09] MEDS: FAMOTIDINE 20 MG TABLET PO (20:35)
[2024-09-09] MEDS: METOPROLOL SUCCINATE EXT REL 25 MG TABCR PO (20:35)
[2024-09-09] MEDS: AMITRIPTYLINE HCL 10 MG TABLET PO (20:35)
[2024-09-09] MEDS: ROSUVASTATIN 10 MG TABLET PO (20:35)
[2024-09-09] MEDS: metFORMIN HCL XR 500 MG TAB.SR.24H PO (20:35)
[2024-09-09] MEDS: IBUPROFEN IV 800 MG/200 ML 800 MG/200 ML BAG 400 MG IVPB (20:36)
[2024-09-10] MEDS: ACETAMINOPHEN 325 MG TABLET 650 MG PO ×2 (00:40→04:59)
[2024-09-10] MEDS: ceFAZolin 2 GM/D5W 50 ML 2 GM/50 ML BAG IVPB ×2 (02:10→09:14)
[2024-09-10 02:36] VITALS: PULSE 91; O2SAT 95
[2024-09-10 03:17] VITALS: BP 124/69; PULSE 76; RESP 18; TEMP 36.6; O2SAT 94
[2024-09-10 06:58] LABS: Basophils Percent Auto 0.4 % (0.2-1.2); Eosinophils Percent Auto 0.2 % (0-4.4); Hematocrit 37.7 % (42.0-52.0); Hemoglobin 12.5 g/dL (14.0-18.0); Immature Granulocyte Absolute 0.04 K/mm3 (0.00-0.031); Immature Granulocyte Percent A 0.4 % (0-0.5); Lymphocytes Absolute Auto 1.41 K/mm3 (0.9-3.2); Lymphocytes Percent Auto 13.9 % (18.3-44.2); Mean Corpuscular HGB Conc 33.2 g/dl (32-36); Mean Corpuscular Hemoglobin 29.6 pg (26-34); Mean Corpuscular Volume 89.1 fl (80-100); Mean Platelet Volume 9.4 fl (7.4-10.4); Monocytes Absolute Auto 0.7 K/mm3 (0.1-0.6); Monocytes Percent Auto 7.1 % (2.6-8.5); Neutrophils Absolute Auto 7.9 K/mm3 (1.3-6.7); Platelet Count Result 126 k/mm3 (150-375); Red Blood Count 4.23 M/mm3 (4.6-6.20); Red Cell Distribution Width 13.7 % (11.5-14.5); White Blood Count 10.1 K/mm3 (4.5-10.0)
[2024-09-10 07:03] LABS: Anion Gap 3 mmol/L (4-12); Blood Urea Nitrogen 13 mg/dL (9-20); Calcium 8.3 mg/dL (8.4-10.2); Carbon Dioxide 28 mmol/L (22-30); Chloride 106 mmol/L (98-107); Estimated CRCL calculation 112 ml/min; Estimated Glomerular Filt Rate > 60; Glucose 127 mg/dL (65-110); Potassium 3.9 mmol/L (3.4-5.0); Sodium 137 mmol/L (137-145)
[2024-09-10 07:17] VITALS: BP 152/84; PULSE 85; RESP 18; TEMP 36.7; O2SAT 94
[2024-09-10] MEDS: polyethylene glycoL 3350 17 GM POWD.PACK PO (08:24)
[2024-09-10 08:25] VITALS: PULSE 82
[2024-09-10] MEDS: ASPIRIN 81 MG ENTERIC TABLET PO (08:25)
[2024-09-10] MEDS: METOPROLOL SUCCINATE EXT REL 25 MG TABCR PO (08:25)
[2024-09-10] MEDS: SENNA/DOCUSATE SODIUM TABLET 2 TAB PO (08:25)
[2024-09-10] MEDS: predniSONE 5 MG TABLET PO (08:26)
[2024-09-10] MEDS: FINASTERIDE 5 MG TABLET PO (08:26)
[2024-09-10] MEDS: LORATADINE 10 MG TABLET PO (08:26)
[2024-09-10] MEDS: SOLIFENACIN 5 MG TABLET PO (08:26)
[2024-09-10] MEDS: FAMOTIDINE 20 MG TABLET PO (08:26)
[2024-09-10] MEDS: PANTOPRAZOLE 40 MG TABLET PO (08:26)
[2024-09-10] MEDS: traMADol HCL (*CRX) 50 MG TABLET PO (09:13)
--- NOTE | 2024-09-10 09:57 | PM.DS ---
DS: Admitting Diagnosis Discharge Date 09/10/24 Admitting Diagnosis Knee arthritis DS: Discharge Diagnosis Discharge Diagnosis (1) Status post total left knee replacement: Code(s): Z96.652 - Presence of left artificial knee joint Status: Acute Assessment and Plan: Postop day 1: Left total knee arthroplasty. Patient tolerated procedure well. No complications. Pain manageable with pain medication. No numbness or tingling. We had a lengthy discussion regarding postoperative wound care, limitations, expectations, and exercises. Patient shows good understanding. He has had initial physical therapy and is tolerating it well. DVT prophylaxis: 81 mg baby aspirin b.i.d. for 14 days. Pain medication: Percocet. Ibuprofen. Prednisone. Patient has followup appointment with Dr. Hopkins in 3 weeks. DS: Summary Hospital Course Reason for hospitalization: Total knee arthroplasty Hospital Course: Patient tolerated procedure well. Has had initial PT/OT. Status at Discharge Functional status at discharge: uses cane/walker Overall status at discharge: patient is progressing back to baseline Time Spent with Patient Time attestation: Total time spent providing and/or coordinating discharge services: Exam Narrative: Overweight 64 y/o Male. Resting comfortably in bed. Wearing compression socks bilaterally. Dressing intact with no drainage. Moderate swelling. No ecchymosis. No erythema. No hematoma. Range of motion limited due to pain. Calf nontender. Neurologic status intact. No varicosities. Distal pulses palpable. DS: Data Data Completed and Pending Labs on day of discharge: Labs from last 24 hours 09/10/24 09/09/24 09/09/24 06:02 12:58 08:36 WBC 10.1 H RBC 4.23 L Hgb 12.5 L Hct 37.7 L MCV 89.1 MCH 29.6 MCHC 33.2 RDW 13.7 Plt Count 126 L MPV 9.4 Immature Gran % (Auto) 0.4 Neut % (Auto) 78.0 H Lymph % (Auto) 13.9 L [place] % (Auto) 7.1 Eos % (Auto) 0.2 Baso % (Auto) 0.4 Lymph # (Auto) 1.41 [place]on # (Auto) 0.7 H Eos # (Auto) 0.0 Baso # (Auto) 0.0 Abs Immat Gran (auto) 0.04 H Absolute Neuts (auto) 7.9 H Absolute Nucleated RBC 0.000 Nucleated RBC % 0.0 Sodium 137 Potassium 3.9 Chloride 106 Carbon Dioxide 28 Anion Gap 3 L BUN 13 Creatinine 0.70 Estim Creat Clear Calc 112 Estimated GFR > 60 Glucose 127 H POC Capillary Glucose 205 H Calcium 8.3 L Blood Type A Positive Antibody Screen Negative Discharge Plan Discharge Patient Disposition: Home, Self-Care Discharge Instructions: See Green instruction sheets Stand Alone Forms: General Discharge Instructions Follow-up/Referrals: Verónica Guzman PA [Physician Fire Extinguisher Inspector] - Discharge Medications: New prednisone 5 mg tablet 5 mg PO DAILY 21 Days Qty: 21 0RF aspirin 81 mg tablet,delayed release (DR/EC) 81 mg PO BID 14 Days Qty: 28 0RF oxycodone-acetaminophen 5-325 mg tablet 1 - 2 tablet PO Q4-6H PRN (Reason: pain) 7 Days Qty: 30 0RF Continued metoprolol succinate 25 mg tablet extended release 24 hr 25 mg PO BID loratadine [Claritin] 10 mg tablet 10 mg PO DAILY amitriptyline 10 mg tablet 10 mg PO QHS 90 Days Qty: 90 3RF vitamin A-vitamin C-vitamin E Tablet 1 tablet PO DAILY Rx Instructions: administer with a meal ascorbate calcium (vitamin C) 500 mg Capsule 500 mg PO DAILY rosuvastatin 10 mg tablet 10 mg PO HS solifenacin 5 mg tablet 5 mg PO DAILY cholecalciferol (vitamin D3) 50 mcg (2,000 unit) Capsule 50 mcg PO BID Probiotic 3 billion cell Capsule 6,000 mmu cells PO DAILY Rx Instructions: administer with a meal metformin 500 mg tablet extended release 24 hr 500 mg PO HS naproxen sodium [Aleve] 220 mg Capsule 220 mg PO Q12H PRN (Reason: Pain) tadalafil 5 mg tablet 5 mg PO DAILY Qty: 30 1RF finasteride 5 mg tablet 5 mg PO DAILY Qty: 90 1RF omeprazole 40 mg capsule,delayed release(DR/EC) 40 mg PO DAILY Qty: 90 1RF Held acetaminophen 500 mg Capsule 1,000 mg PO Q6H PRN (Reason: Pain) Hold Instructions: Resume on 09/30/24. Do not take more than 3,000 mg in 24 hours. Pain meds have 325 in each.
--- NOTE | 2024-09-10 13:29 | WPDANESPN ---
Anes - Prog Note Post-Op Date/Time: 09/10/24 13:29 Cardiovascular status: normal Respiratory status: normal Airway patency: baseline Mental status: baseline Post-Op hydration status: normal Vital Signs: Last Vital Signs Temp 98.1 F 09/10/24 07:17 Pulse 82 09/10/24 08:25 Resp 18 09/10/24 07:17 BP 152/84 H 09/10/24 07:17 Pulse Ox 94 09/10/24 07:17 O2 Del Method CPAP 09/10/24 02:36 O2 Flow Rate 8 09/09/24 12:40 Pain Score (VAS): 0/10 I/O: Intake & Output 09/09/24 09/10/24 09/10/24 23:59 07:59 15:59 Intake Total 1050 600 290 Balance 1050 600 290 Laboratory Tests 09/10/24 06:02 09/10/24 06:02 09/10/24 06:02 WBC 10.1 H RBC 4.23 L Hgb 12.5 L Hct 37.7 L MCV 89.1 MCH 29.6 MCHC 33.2 RDW 13.7 Plt Count 126 L MPV 9.4 Immature Gran % (Auto) 0.4 Neut % (Auto) 78.0 H Lymph % (Auto) 13.9 L [place] % (Auto) 7.1 Eos % (Auto) 0.2 Baso % (Auto) 0.4 Lymph # (Auto) 1.41 [place] # (Auto) 0.7 H Eos # (Auto) 0.0 Baso # (Auto) 0.0 Abs Immat Gran (auto) 0.04 H Absolute Neuts (auto) 7.9 H Absolute Nucleated RBC 0.000 Nucleated RBC % 0.0 Sodium 137 Potassium 3.9 Chloride 106 Carbon Dioxide 28 Anion Gap 3 L BUN 13 Creatinine 0.70 Estim Creat Clear Calc 112 Estimated GFR > 60 Glucose 127 H Calcium 8.3 L Post-procedural complaints: none Patient Feedback: Patient satisfied with anesthetic care.
== END 2024-09-10 10:25 | disposition home or self-care (01) ==
LOC: ANHSURGERY 11:42 → ANH3MEDSUR 13:38
PROVIDERS: Physician Assistant Surgical; PCP Family Medicine; Visit Provider Orthopaedic Surgery
PROC: (CPT 27447; principal; 2024-09-09 10:30)
DX: M17.12 Unilateral primary osteoarthritis, left knee (principal); I10 Essential (primary) hypertension; E78.5 Hyperlipidemia, unspecified; R73.03 Prediabetes; N40.1 Benign prostatic hyperplasia with lower urinary tract symptoms; K21.9 Gastro-esophageal reflux disease without esophagitis; K58.9 Irritable bowel syndrome, unspecified; G47.33 Obstructive sleep apnea (adult) (pediatric); N52.9 Male erectile dysfunction, unspecified; Z79.84 Long term (current) use of oral hypoglycemic drugs; Z79.1 Long term (current) use of non-steroidal anti-inflammatories (NSAID); Z99.89 Dependence on other enabling machines and devices; Z98.890 Other specified postprocedural states; Z90.49 Acquired absence of other specified parts of digestive tract; Z87.19 Personal history of other diseases of the digestive system; Z86.79 Personal history of other diseases of the circulatory system; Z80.0 Family history of malignant neoplasm of digestive organs
CPT/HCPCS: 27447; 36415; 73560; 80048; 82948; 85025; 86850; 86900; 86901; 97110; 97116; 97161; 97165; 97530; 97535; A9270; C1713; C1776; J0171; J0690; J1100; J1171; J1741; J1885; J2003; J2250; J2270; J2405; J2704; J2795; J3010; J7030; J7120; J7512

== ENCOUNTER 2024-11-17 13:23 | Outpatient (CLI) | payer MEDICARE, OTHER, SELFPAY ==
--- NOTE | ~2024-11-17 | XR_ITS ---
Left Knee Technique: AP, lateral, and sunrise views were obtained. Clinical History: Aftercare following joint replacement COMPARISON: 10/23/2024 Findings: No fracture or dislocation is seen. Left knee arthroplasty remains in place, unchanged. Sof t tissues are unremarkable. No joint effusion is seen. Impression: Stable left knee arthroplasty. No acute abnormality. Reviewed, dictated and finalized at location . P OPERATOR Impression: Stable left knee arthroplasty. No acute abnormality.
== END 2024-11-17 13:24 | disposition home or self-care (01) ==
PROVIDERS: PCP Orthopaedic Surgery; Visit Provider Orthopaedic Surgery
DX: Z47.1 Aftercare following joint replacement surgery (principal); Z96.652 Presence of left artificial knee joint
CPT/HCPCS: 73562

== ENCOUNTER 2025-06-03 15:24 | Outpatient (CLI) | payer MEDICARE, OTHER, SELFPAY ==
--- NOTE | ~2025-06-03 | CT_ITS ---
EXAMINATION: CT_LERTCWO_CT DATE: 06/03/2025 16:10 INDICATION: Primary osteoarthritis of the right knee for preoperative planning TECHNIQUE: High resolution computed tomography (CT) of the right lower extremity from the hip through the ankle was performed without intravenous contrast. Additional sagittal and coronal reconstructions were performed. Automated exposure control and iterative reconstruction technique were employed. The dose- length product was 1897.87 mGy-cm. COMPARISON: 12/26/2024 FINDINGS: Bone alignment is normal. No fracture. Medial compartment predominant tricompartmental osteoarthritis at the right knee with severe joint space narrowing but appreciated on the prior weightbearing radiographs with subarticular eburnation and mild subarticular cystic change on both sides of the joint space. Small to moderate size marginal osteophytes in all 3 compartments of the knee. Small right knee joint effusion. Peripherally calcified likely loose osteochondral body at the posterior recess along the posterior margin of the posterior cruciate ligament. Small Pablo's cyst. Mild to moderate osteoar thritis of the right hip without joint effusion no free fluid in the visualized pelvis. Visualized bladder distal colon are normal. Prostatomegaly measuring 4.6 x 3.4 cm. No pathologically enlarged right pelvic or inguinal lymphadenopathy. Mild polyarticular osteoarthritis at the right ankle, mid and hindfoot. IMPRESSION: 1. Severe medial compartment predominant tricompartmental osteoarthritis of the right knee. Reviewed, dictated and finalized at location A.
[2025-06-03 16:22] LABS: Hematocrit 42.4 % (42.0-52.0); Hemoglobin 14.3 g/dL (14.0-18.0)
[2025-06-03 16:35] LABS: Albumin Level 4.4 g/dL (3.5-5.1); Estimated Glomerular Filt Rate > 60; Glucose 113 mg/dL (65-110); Hemoglobin A1C 6.7 % (<5.7)
--- NOTE | 2025-06-04 06:32 | PCCARD ---
EKG ORDER WAS ACTIVATED BY [employer]. 16:15 PATIENT WAS IN LAB DRAW (PER [facility] IN RADIOLOGY). 16:32 CALLED LAB, OMID IN LAB SAID PATIENT LEFT. EKG DID NOT GET DONE DUE TO PATIENT LEAVING.
== END 2025-06-03 15:25 | disposition home or self-care (01) ==
PROVIDERS: PCP Family Medicine; Visit Provider Orthopaedic Surgery
DX: M17.11 Unilateral primary osteoarthritis, right knee (principal); E11.9 Type 2 diabetes mellitus without complications; E78.5 Hyperlipidemia, unspecified
CPT/HCPCS: 36415; 73700; 82040; 82565; 82947; 83036; 85014; 85018

== ENCOUNTER 2025-06-16 12:29 | Outpatient (CLI) | payer MEDICARE, OTHER, SELFPAY ==
--- NOTE | 2025-06-16 12:32 | ECG_ITS ---
Test Date: 2025-06-16 12:39:42 Measurements Intervals [place] Rate: 59 P: 68 CO: 231 QRS: 16 QRSD: 113 T: 48 QT: 395 QTc: 394 Interpretive Statements SINUS BRADYCARDIA WITH FIRST DEGREE AV BLOCK MODERATE INTRAVENTRICULAR CONDUCTION DELAY [110+ ms QRS DURATION] BORDERLINE ECG No previous ECG available for comparison Electronically Signed On 06-17-2025 15:45:10 CDT by Julio Schultz M.D.
--- OUTSIDE RECORDS SUMMARY | 2025-06-16 13:50 | XMS_ITS | Clinical Summary ---
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 Gender Identity Not on file Sexual Orientation Not on file Plan of Treatment Health Maintenance Due Date Last Done Comments Colorectal Cancer Screening Colonoscopy (10 Years) 1958 Hepatitis C 02/24/1976 DTaP, Tdap and Td Vaccines (1 - Tdap) 1977 Pneumococcal Vaccine: 50+ Years (1 of 1 - PCV) 02/24/2008 Zoster Vaccines (1 of 2) 02/24/2008 COVID-19 Vaccine ( season) 2025 07/12/2022, 08/28/2021, 12/28/2020, Additional history exists RSV Immunization or 60+ Years (1 - 1-dose 75+ series) 2033 Meningococcal B Vaccine Aged Out No l onger eligible based on patient's age to complete this topic Meningococcal Vaccine Aged Out No adrian leah eligible based on patient's age to complete this topic RSV Immunizations Under 20 Months Aged Out No longer eligible based on patient's age to complete this topic Insurance [facility] Care Teams Art Handler Relationship Specialty Start Date End Date Christiano Salinas MD [address] [facility] [address] [place] [address] PCP - General FAMILY PRACTICE 12/14/22
--- OUTSIDE RECORDS SUMMARY | 2025-06-16 13:50 | XMS_ITS | Clinical Summary ---
Author Organization [facility] [address] Address [address] [place] [address] Care Team Providers Care Convolute Tube Winder Name Role Phone Christiano Salinas MD Primary Care Provider Allergies No known active allergies Medications tadalafil (CIALIS) 5 mg tablet Take 1 tablet (5 mg total) by mouth daily Active finasteride (PROSCAR) 5 mg tablet Take 1 tablet (5 mg total) by mouth daily Active omeprazole (PriLOSEC) 40 mg capsule Take 1 capsule (40 mg total) by mouth daily Active amitriptyline (ELAVIL) 10 mg tablet Take 1 tablet (10 mg total) by mouth nightly 4 Active rosuvastatin (CRESTOR) 10 mg tablet TAKE 1 TABLET(10 MG) BY MOUTH DAILY 90 tablet 5 Active metoprolol tartrate (LOPRESSOR) 25 mg immediate release tabletIndicati ons:Palpitatio ns TAKE 1 TABLET(25 MG) BY MOUTH TWICE DAILY 180 tablet 5 Active rosuvastatin (CRESTOR) 10 mg tablet TAKE 1 TABLET(10 MG) BY MOUTH DAILY 90 tablet 3 4 05/29/20 25 Discontinued metoprolol tartrate (LOPRESSOR) 25 mg immediate release tabletIndicati ons:Palpitatio ns TAKE 1 TABLET(25 MG) BY MOUTH TWICE DAILY 180 tablet 1 5 06/04/20 25 Discontinued Active Problems Problem Noted Date Diagnosed Date Hyperlipidemia LDL goal <100 09/24/2019 Palpitations 10/29/2017 Atypical chest pain 10/29/2017 Essential hypertension 10/29/2017 VINAY on CPAP 10/29/2017 Gastroesophageal reflux disease without esophagi tis 10/29/2017 Surgical History Surgery Date Site/Laterality Comments CHOLECYSTECTOMY Cholecystectomy CHOLECYSTECTOMY Medical History Medical History Date Comments Hypertension Hypertension Hx Other Medical Palpitations Hx Other Medical BPH Sleep apnea GERD (gastroesophageal reflux disease) 1990 Arthritis Family History Medical History Relation Name Comments Cancer Father Dean Bartholomew Diabetes Father Dean Bartholomew Hyperlipidemia Father Dean Bartholomew Hypertension Father Dean Bartholomew Diabetes Mother Hypertension Mother Diabetes Paternal Grandmother Samramargo Bartholomew Hypertension Paternal Grandmother Samramargo Mendezder Cancer Sister Amairani Schnyder Diabetes Sister Amairani Mendezder Relation Name Status Comments Father Dean Bartholomew (Age 79) Mother Alive Paternal Grandmother Samramargo Mendezder Sister Amairani Bartholomew (Age 57) Social History Tobacco Use Types Packs/Day Years Used Date Smoking Tobacco: Never Cigarettes Smokeless Tobacco: Never Tobacco Cessation:Counseling Given: Not Answered Alcohol Use Standard Drinks/Week Comments Yes 2 (1 standard drink = 0.6 oz pur e alcohol) Sex and Gender Information Value Date Recorded Sex Assigned at Not on file 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 Gender Identity Not on file Sexual Orientation Not on file Obstetrics History Last Filed Vital Signs Vital Sign Reading Time Taken Comments Blood Pressure 118/78 05/12/2024 8:32 AM CDT Pulse 67 05/12/2024 8:32 AM CDT Temperature - - Respiratory Rate - - Oxygen Saturation 96% 05/12/2024 8:32 AM CDT Inhaled Oxygen Concentration - - Weight 106.6 kg (235 lb) 05/12/2024 8:32 AM CDT Height 182.9 cm (6') 05/12/2024 8:32 AM CDT Body Mass Index 31.87 05/12/2024 8:32 AM CDT Plan of Treatment Health Maintenance Due Date Last Done Comments Colon Cancer Screening-Colonoscopy 1960 Depression Screening 1958 Fall Risk Assessment 1960 Hepatitis C Screening 1960 Prostate Cancer Screening-PSA 1960 Hepatitis B Screening 02/24/1976 Pneumococcal vaccine 65+ (1 of 1 - PCV) 02/24/2008 Zoster Vaccine (1 of 2) 02/24/2008 Abdominal Aortic Aneurysm (AAA) Screen 2023 Well Visit 65+ 2023 Influenza Vaccine (#1) 2025 08/20/2020 DTaP/Tdap/Td Vaccine (2 - Td or Tdap) 07/30/2025 Insurance MEDICARE [facility] MEDICARE [employer] Care Teams Convolute Tube Winder Relationship Specialty Start Date End Date Christiano Salinas MD PCP - General Family Practice 10/04/20
--- OUTSIDE RECORDS SUMMARY | 2025-06-16 13:50 | XMS_ITS | Clinical Summary ---
Author Organization [facility] Tyron Garcia Address [address] [place] [address] Care Team Providers Care Juice Mixer Name Role Phone Christiano Salinas MD Primary Care Provider Allergies No known active allergies Medications rosuvastatin (CRESTOR) 10 mg tablet Take 10 mg by mouth daily. Active omeprazole (PriLOSEC) 40 mg Capsule, Delayed Release(E.C.) Take 40 mg by mouth daily. Active metoprolol tartrate (LOPRESSOR) 25 mg tablet Take 25 mg by mouth 2 times daily. Active FINASTERIDE ORAL Take by mouth. Active tadalafiL (CIALIS) 5 mg tablet Take 5 mg by mouth 1 time daily as needed for Erectile Dysfunction. Active Active Problems Problem Noted Date Diagnosed Date Periumbilical abdominal pain 12/27/2021 Splenic mass 11/14/2021 Family History Medical History Relation Name Comments Esophageal Cancer Father Brain Cancer Sister Relation Name Status Comments Father Mother Alive Sister Social History Tobacco Use Types Packs/Day Years Used Date Smoking Tobacco: Never Smokeless Tobacco: Never Tobacco Cessation:Counseling Given: Not Answered Alcohol Use Standard Drinks/Week Comments Yes 0 (1 standard drink = 0.6 oz pur e alcohol) Sex and Gender Information Value Date Recorded Sex Assigned at Not on file Legal Sex Male 12:29 PM FLIGHT MECHANIC Gender Identity Not on file Sexual Orientation Not on file Last Filed Vital Signs Vital Sign Reading Time Taken Comments Blood Pressure 129/82 09/13/2023 11:58 AM FLIGHT MECHANIC Pulse 60 09/13/2023 11:58 AM FLIGHT MECHANIC Temperature 36.8 C (98.2 F) 09/13/2023 11:58 AM FLIGHT MECHANIC Respiratory Rate 16 09/13/2023 11:5 8 AM FLIGHT MECHANIC Oxygen Saturation 96% 09/13/2023 11: 58 AM FLIGHT MECHANIC Inhaled Oxygen Concentration - - Weight 104.1 kg (229 lb 9.6 oz) 023 11:58 AM FLIGHT MECHANIC Height 182.9 cm (6') 03/01/2022 1:24 PM CDT Body Mass Index 31.14 03/01/2022 1:24 PM CDT Plan of Treatment Health Maintenance Due Date Last Done Comments DTAP/TDAP/TD VACCINES (1 - Tdap) 1977 COLORECTAL SCREENING 2003 Colorectal Cancer Screening 2003 FIT-DNA Q 3 years 2003 FIT/FOBT Q 1 year 2003 Flex Sig/CT Colonography Q 5 years 2003 PNEUMOCOCCAL VACCINE 50+ YEA RS (1 of 1 - PCV) 02/24/2008 ZOSTER VACCINE (1 of 2) 02/24/2008 INFLUENZA VACCINE (#1) 2025 , 07/12/2022, 08/29/2021 RSV VACCINE (60+ or ) (1 - 1-dose 75+ series) 2033 Insurance MEDICARE PART A AND B Care Teams Juice Mixer Relationship Specialty Start Date End Date Christiano Salinas MD [address] [place] [phone] PCP - General Family Practice 11/14/21
== END 2025-06-16 12:30 | disposition home or self-care (01) ==
PROVIDERS: PCP Family Medicine; Visit Provider Orthopaedic Surgery
DX: I10 Essential (primary) hypertension (principal); R94.31 Abnormal electrocardiogram [ECG] [EKG]
CPT/HCPCS: 93005

== ENCOUNTER 2025-07-29 13:46 | Outpatient (CLI) | payer MEDICARE, OTHER, SELFPAY ==
[2025-07-29 14:45] LABS: Hematocrit 43.4 % (42.0-52.0); Hemoglobin 14.6 g/dL (14.0-18.0); Immature Granulocyte Percent A 0.3 % (0-0.5); Immature Platelet Fraction Pct 2.2 % (0.9-11.2); Lymphocytes Absolute Auto 1.72 K/mm3 (0.9-3.2); Mean Corpuscular HGB Conc 33.6 g/dl (32-36); Mean Corpuscular Hemoglobin 29.4 pg (26-34); Mean Corpuscular Volume 87.3 fl (80-100); Nucleated Red Blood Cells Absolute Auto 0.000 K/mm3 (0.0-0.012); Nucleated Red Blood Cells Perc 0.0 % (0.0-0.2); Platelet Count Result 137 k/mm3 (150-375); Red Blood Count 4.97 M/mm3 (4.6-6.20); White Blood Count 6.4 K/mm3 (4.5-10.0)
[2025-07-29 14:51] LABS: Albumin Level 4.6 g/dL (3.5-5.1)
[2025-07-29 14:54] LABS: Anion Gap 8 mmol/L (4-12); Blood Urea Nitrogen 18 mg/dL (9-20); Calcium 9.5 mg/dL (8.4-10.2); Carbon Dioxide 30 mmol/L (22-30); Chloride 101 mmol/L (98-107); Estimated Glomerular Filt Rate > 60; Glucose 101 mg/dL (65-110); Potassium 4.2 mmol/L (3.4-5.0); Sodium 139 mmol/L (137-145)
[2025-07-29 16:05] LABS: MRSA (PCR) NOT DETECTED (NOT DETECTE)
--- OUTSIDE RECORDS SUMMARY | 2025-07-29 17:46 | XMS_ITS | Clinical Summary ---
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 Gender Identity Not on file Sexual Orientation Not on file Plan of Treatment Health Maintenance Due Date Last Done Comments Colorectal Cancer Screening Colonoscopy (10 Years) 1958 Hepatitis C 02/24/1976 DTaP, Tdap and Td Vaccines (1 - Tdap) 1977 Pneumococcal Vaccine: 50+ Years (1 of 1 - PCV) 02/24/2008 Zoster Vaccines (1 of 2) 02/24/2008 COVID-19 Vaccine ( - season) 2025 07/12/2022, 08/28/2021, 12/28/2020, Additional history exists Influenza Adult (#1) 2025 07/12/2022, 08/28/2021, 08/20/2020 RSV Immunization or 60+ Years (1 - 1-dose 75+ series) 2033 Hepatitis A Vaccines Aged Out No long er eligible based on patient's age to complete this topic Meningococcal B Vaccine Aged Out No l onger eligible based on patient's age to complete this topic Meningococcal Vaccine Aged Out No adrian leah eligible based on patient's age to complete this topic RSV Immunizations Under 20 Months Aged Out No longer eligible based on patient's age to complete this topic Insurance [facility] Care Teams Social Media Campaign Manager Relationship Specialty Start Date End Date Christiano Salinas MD [address] [facility] [address] [place] [address] PCP - General FAMILY PRACTICE 12/14/22
--- OUTSIDE RECORDS SUMMARY | 2025-07-29 17:46 | XMS_ITS | Clinical Summary ---
Author Organization [facility] Tyron Garcia Address [address] [place] [address] Care Team Providers Care Cloth Carrier Name Role Phone Christiano Salinas MD Primary [...] on file Legal Sex Male 12:29 PM RADIOISOTOPE TECHNICIAN Gender Identity Not on file Sexual Orientation Not on file Last Filed Vital Signs Vital Sign Reading Time Taken Comments Blood Pressure 129/82 09/13/2023 11:58 AM RADIOISOTOPE TECHNICIAN Pulse 60 09/13/2023 11:58 AM RADIOISOTOPE TECHNICIAN Temperature 36.8 C (98.2 F) 09/13/2023 11:58 AM RADIOISOTOPE TECHNICIAN Respiratory Rate 16 09/13/2023 11:5 8 AM RADIOISOTOPE TECHNICIAN Oxygen Saturation 96% 09/13/2023 11: 58 AM RADIOISOTOPE TECHNICIAN Inhaled Oxygen Concentration - - Weight 104.1 kg (229 lb 9.6 oz) 023 11:58 AM RADIOISOTOPE TECHNICIAN Height 182.9 cm (6') 03/01/2022 1:24 PM [...] MEDICARE PART A AND B Care Teams Cloth Carrier Relationship Specialty Start Date End Date Christiano Salinas MD [address] [place] [phone] PCP - General Family Practice 11/14/21
--- OUTSIDE RECORDS SUMMARY | 2025-07-29 17:46 | XMS_ITS | Clinical Summary ---
Author Organization [facility] [address] Address [address] [place] [address] Care Team Providers Care Stock Taker Name Role Phone Christiano Salinas MD Primary [...] tablet (10 mg total) by mouth nightly 2024 Active rosuvastatin (CRESTOR) 10 mg tablet TAKE 1 TABLET(10 MG) BY MOUTH DAILY 90 tablet 05/29/2025 Active metoprolol tartrate (LOPRESSOR) 25 mg immediate release tabletIndicatio ns:Palpitations TAKE 1 TABLET(25 MG) BY MOUTH TWICE DAILY 180 tablet 06/04/2025 Active Active Problems Problem Noted Date Diagnosed [...] BPH Sleep apnea GERD (gastroesophageal reflux disease) 1989 Arthritis Family History Medical History Relation Name Comments Cancer Father Dean Bartholomew Diabetes Father Dean Bartholomew Hyperlipidemia Father Dean Bartholomew Hypertension Father Dean Bartholomew Diabetes Mother Hypertension Mother Diabetes Paternal Grandmother Samramargo Bartholomew Hypertension Paternal Grandmother Samra Bartholomew Cancer Sister Amairani Bartholomew Diabetes Sister Amairani Bartholomew Relation Name Status Comments Father Dean Bartholomew (Age 79) Mother Alive Paternal Grandmother Samramargo Dumontnyder Sister Amairani Bartholomew (Age 57) Social History Tobacco Use Types Packs/Day Years Used Date Smoking Tobacco: Never Cigarettes Smokeless Tobacco: Never Tobacco Cessation:Counseling Given: Not Answered Alcohol Use Standard Drinks/Week Comments Yes 2 (1 standard drink = 0.6 oz pur e alcohol) Sex and Gender Information Value Date Recorded Sex Assigned at Not on file Legal Sex Male 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
== END 2025-07-29 13:47 | disposition home or self-care (01) ==
LOC: ANHSURGERY 13:49
PROVIDERS: Anesthesiology; PCP Family Medicine; Visit Provider Orthopaedic Surgery
DX: E11.9 Type 2 diabetes mellitus without complications (principal); M17.11 Unilateral primary osteoarthritis, right knee; Z01.818 Encounter for other preprocedural examination
CPT/HCPCS: 36415; 80048; 80307; 82040; 85025; 85055; 87641

== ENCOUNTER 2025-08-27 01:40 | Day surgery (SDC) | payer MEDICARE, OTHER, SELFPAY ==
[2025-07-29 13:58] VITALS: BP 125/75; PULSE 63; RESP 16; TEMP 36.7; O2SAT 97; BMI 32.1
--- NOTE | 2025-07-29 14:10 | PC.NURSE ---
[facility] has started construction of its new state of the art ER which will open Spring 2026. With this, we anticipate parking may be a challenge for some our surgical patients and families. Parking spaces are limited but are available for all Surgical, obstetrics, and ER patients sharing this lot. If you arrive and find you are having a hard time finding a parking space, please note that we understand the challenges, please drive around the hospital and park near Hospital Entrance 1. When you enter this entrance, you can ask a volunteer to direct or take you back to the surgical waiting area to check in. We appreciate everyone?s understanding of these expected challenges while we build for your future. Report to the Outpatient Waiting Room, entrance under the green pavilion located off [address], at time ___06:00am___ on date ___08/27/25____. Planned Procedure Time: ___07:30am .? Time changes happen often and if your time is changed the preop area will call you the afternoon before. - You and your visitor will be asked to self-screen and do not enter if you have any COVID symptoms. Please call surgeon if you need to reschedule. - A mask is optional within the hospital at this time. Patients may have clear liquids (water, carbonated beverages, clear teas, apple juice) until 3 hours prior to surgery with a maximum of 20 ounces. - No food from midnight until time of surgery and no smoking, or chewing tobacco (or any form of nicotine). No chewing gum, candy or mints. (0430am) Take only the following medications with a SIP of water on the morning of surgery: ___Metoprolol, Tylenol if Needed DO NOT STOP ANY OF YOUR OTHER PRESCRIPTION MEDICATIONS PRIOR TO SURGERY EXCEPT THE FOLLOWING Hold all vitamins and supplements for 3 days per anesthesiologist. Medications to discontinue per physician ____HOLD ASPIRIN/NSAIDS for [address] Hopkins Date to take last dose 08/19/25 Please no make-up, nail romanian, hairspray, perfume, deodorant, or body powder the day of surgery.? No jewelry (including any body piercings) or valuables the day of surgery, leave them at home.? Please take a shower or bath the night before, or the morning of, surgery with an antibacterial soap.? Wear comfortable, loose fitting clothing.? Overnight bag, CPAP, good shoes, Cell phone/marine electrician, Glasses - Jewelry must be removed prior to entering the operating room.? Rings and piercings that are not removed may be cut off. - The hospital will not accept responsibility for valuables.? - Please leave all valuables, including medications, at home the day of surgery. If you are going home after surgery, a licensed sales warehouse driver must drive you home.? - NO public transportation without another adult if you receive anesthesia. - We recommend that an adult stay with you for 24 hours following discharge. - We also recommend that you do not drive, make important decision, drink alcoholic beverages, or take any drugs that were not prescribed by your health care provider for at least 24 hours after your discharge time. Follow any additional instructions given to you from your surgeon. Telephone instructions given to ___Patient and asked if any additional questions and then verbalized understanding. Patient advised to call surgeon office or pre surgery nurse liaison [phone] if any additional questions.
[2025-08-27] VITALS (16 sets, daily range): BP systolic 119–150; BP diastolic 64–90; PULSE 70–100; RESP 12–20; TEMP 36.1–36.4; O2SAT 94–99; BMI 31.2
--- NOTE | ~2025-08-27 | XR_ITS ---
EXAM/PROCEDURE: [id number] HISTORY: POST-OP RIGHT TKA COMPARISON: None available. TECHNIQUE: Surgery FINDINGS: Right total knee arthroplasty hardware is been placed with bones and hardware in gross anatomic alignment. Soft tissue swelling, and effusion with intra-articular air consistent with recent surgery noted. IMPRESSION: Right total knee arthroplasty hardware with bones and hardware in gross alignment. Reviewed, dictated and finalized at location A. ONNEL SECURITY SPECIALIST IMPRESSION: Right total knee arthroplasty hardware with bones and hardware in gross alignme nt.
--- OUTSIDE RECORDS SUMMARY | 2025-08-27 02:15 | XMS_ITS | Clinical Summary ---
Author Organization [facility] [address] Address [address] [place] [address] Care Team Providers Care Gallery Or Museum Attendant Name Role Phone Christiano Salinas MD Primary [...] mg total) by mouth nightly 4 Active metoprolol tartrate (LOPRESSOR) 25 mg immediate release tabletIndicati ons:Palpitatio ns TAKE 1 TABLET(25 MG) BY MOUTH TWICE DAILY 180 tablet 5 Active rosuvastatin (CRESTOR) 10 mg tablet TAKE 1 TABLET(10 MG) BY MOUTH DAILY 90 tablet 5 Active rosuvastatin (CRESTOR) 10 mg tablet TAKE 1 TABLET(10 MG) BY MOUTH DAILY 90 tablet 5 08/25/20 25 Discontinued Active Problems Problem Noted Date [...] Diabetes Mother Hypertension Mother Diabetes Paternal Grandmother Samra Bartholomew Hypertension Paternal Grandmother Samra Bartholomew Cancer Sister Amairani Bartholomew Diabetes Sister Amairani Bartholomew Relation Name Status Comments Father Dean Bartholomew (Age 79) Mother Alive Paternal Grandmother Samra Mendezder Sister Amairani Bartholomew (Age 57) Social History Tobacco Use Types Packs/Day Years Used Date Smoking Tobacco: Never Cigarettes Smokeless Tobacco: Never Tobacco Cessation:Counseling Given: Not Answered Alcohol Use Standard Drinks/Week Comments Yes 2 (1 standard drink = 0.6 oz pur e alcohol) Sex and Gender Information Value Date Recorded Sex Assigned at Not on file Legal Sex Male 3:03 AM CLINICAL LAB SPECIALIST Gender Identity Not on file Sexual Orientation [...] PH[employer]ICI[employer] MEDICARE [employer] [place] [employer] Care Teams Gallery Or Museum Attendant Relationship Specialty Start Date End Date Christiano Salinas MD PCP - General Family Practice 10/04/20
--- OUTSIDE RECORDS SUMMARY | 2025-08-27 02:15 | XMS_ITS | Clinical Summary ---
Author Organization [facility] Tyron Garcia Address [address] [place] [address] Care Team Providers Care Market Development Analyst Name Role Phone Christiano Salinas MD Primary [...] on file Legal Sex Male 12:29 PM ASSISTED LIVING COORDINATOR Gender Identity Not on file Sexual Orientation Not on file Last Filed Vital Signs Vital Sign Reading Time Taken Comments Blood Pressure 129/82 09/13/2023 11:58 AM ASSISTED LIVING COORDINATOR Pulse 60 09/13/2023 11:58 AM ASSISTED LIVING COORDINATOR Temperature 36.8 C (98.2 F) 09/13/2023 11:58 AM ASSISTED LIVING COORDINATOR Respiratory Rate 16 09/13/2023 11:5 8 AM ASSISTED LIVING COORDINATOR Oxygen Saturation 96% 09/13/2023 11: 58 AM ASSISTED LIVING COORDINATOR Inhaled Oxygen Concentration - - Weight 104.1 kg (229 lb 9.6 oz) 023 11:58 AM ASSISTED LIVING COORDINATOR Height 182.9 cm (6') 03/01/2022 1:24 PM [...] MEDICARE PART A AND B Care Teams Market Development Analyst Relationship Specialty Start Date End Date Christiano Salinas MD [address] [place] [phone] PCP - General Family Practice 11/14/21
--- OUTSIDE RECORDS SUMMARY | 2025-08-27 02:15 | XMS_ITS | Clinical Summary ---
Author Organization [facility] Address [address] [place] [address] Care Team Providers Care Senior Physical Therapist Name Role Phone Christiano Salinas MD Primary Care Provider Social History Tobacco Use Types Packs/Day Years Used Date Smoking Tobacco: Never Assessed Sex and Gender Information Value Date Recorded Sex Assigned at Not on file Legal Sex Male 12:41 PM [employer] Gender Identity Not on file Sexual Orientation [...] patient's age to complete this topic Insurance [facility] Care Teams Senior Physical Therapist Relationship Specialty Start Date End Date Christiano Salinas MD [address] [facility] [address] [place] [address] PCP - General FAMILY PRACTICE 12/14/22
[2025-08-27] MEDS: ACETAMINOPHEN 500 MG TABLET 1000 MG PO (06:45)
[2025-08-27] MEDS: TRANEXAMIC ACID 1,000MG/ISO100 1,000 MG/100 ML BAG 200 MG IVPB (06:57)
--- NOTE | 2025-08-27 07:00 | WPDANESEPPF ---
Anes - Initial Pre Proc Eval Procedure: Operation Date: 08/27/25 07:30 Proposed Procedures p Right Custom Total Knee Arthroplasty - Carroll Hopkins MD Date/Time: 08/27/25 07:01 Surgeon: Carroll Hopkins MD Pre Op Diagnosis: Prim O A Right Knee Patient Data Age: 65 Gender: M Height: 1.8 m Weight: 104.5 kg Last Vital Signs Temp 98.1 F 07/29/25 13:58 Pulse 63 07/29/25 13:58 Resp 16 07/29/25 13:58 BP 125/75 07/29/25 13:58 Pulse Ox 97 07/29/25 13:58 O2 Del Method Room Air 07/29/25 13:58 Allergies Allergy/AdvReac Type Severity Reaction Status Date / Time No Known Allergies Allergy Mild Verified 08/27/25 05:57 Home Medications ?Medication ?Instructions ?Recorded ?Confirmed ?Type metoprolol succinate 25 mg 25 mg PO BID 09/21/21 07/29/25 History tablet,extended release 24 hr tadalafil 5 mg tablet 5 mg PO DAILY #30 tabs 11/23/21 07/29/25 Rx finasteride 5 mg tablet 5 mg PO DAILY #90 tabs 01/09/22 07/29/25 Rx loratadine 10 mg tablet (Claritin) 10 mg PO DAILY 10/18/23 07/29/25 History acetaminophen 500 mg capsule 1,000 mg PO Q6H PRN Pain 08/13/24 07/29/25 History ascorbate calcium (vitamin C) 500 500 mg PO DAILY 08/13/24 07/29/25 History mg capsule cholecalciferol (vitamin D3) 50 50 mcg PO BID 08/13/24 07/29/25 History mcg (2,000 unit) capsule lactobacillus combination no.4 3 6,000 mmu cells PO DAILY 08/13/24 07/29/25 History billion cell capsule (Probiotic) rosuvastatin 10 mg tablet 10 mg PO HS 08/13/24 07/29/25 History solifenacin 5 mg tablet 5 mg PO DAILY 08/13/24 07/29/25 History vitamin A-vitamin C-vitamin E 1 tablet PO DAILY 08/13/24 07/29/25 History amitriptyline 10 mg tablet 10 mg PO QHS 3 months #90 tabs 12/04/24 07/29/25 Rx blood sugar diagnostic (Accu-Chek #100 ea 05/26/25 07/29/25 Rx Guide test strips) blood-glucose meter (Accu-Chek #1 ea 05/26/25 07/29/25 Rx Guide Glucose Meter) omeprazole 40 mg capsule,delayed 40 mg PO DAILY #90 caps 06/09/25 07/29/25 Rx release metformin 500 mg tablet,extended 1,000 mg (2 x 500 mg) PO BID 90 07/24/25 07/29/25 Rx release 24 hr (Glucophage XR) days #360 tabs lancets (Accu-Chek Softclix #100 ea 08/19/25 Rx Lancets) Laboratory Tests 08/27/25 08/27/25 06:24 06:34 POC Capillary Glucose 125 H mg/dl (65-105) Blood Type Pending Antibody Screen Pending Patient hx anesthesia problems: none Family hx anesthesia problems: none Results Review: All pre-operative results and documents have been reviewed as part of the pre-operative evaluation. [facility] Past Medical History Medical History Type 2 diabetes mellitus (~04/2024) Erectile disorder Hyperlipidemia Environmental allergies Splenic mass Osteoarthritis Colon, diverticulosis IBS (irritable bowel syndrome) Benign prostatic hyperplasia with nocturia Gastro-esophageal reflux disease without esophagitis VINAY on CPAP Other and unspecified hyperlipidemia Hypertension Mitral valve prolapse Surgical History Surgical History Status post total left knee replacement (~09/09/24) History of total left knee replacement (09/09/24) History of cholecystectomy (Unknown) 1990s Family History Family History Sibling Family history of malignant melanoma Family history of malignant neoplasm Father Family history of malignant neoplasm of esophagus Family history of malignant neoplasm Other Diabetes mellitus Social History Social History Smoking status: Never smoker Second hand tobacco smoke exposure: No Alcohol intake: current Drinks per week: 2 Alcohol use details: socially Substance use: never Substance use type: does not use Do You Feel Safe in your Home?: Yes Lack of Transportation: No Lack of Food: Never True Current Housing: I Have Housing Concerned About Future Housing: No Difficulty Paying Gas/Electric Bills: No Difficulty Paying for Meds: No Currently Unemployed: No Education: Decline to Answer Difficulty w/ Childcare or Family Care: No Living arrangements: with family Additional living arrangements comments: MOTHER Gender identity (if verbalized by the patient): Male Spiritual care concerns: No Anes - Eval Final PreProcedure Day of Procedure 08/27/25 07:01 Patient weight: obese Lungs: normal air movement Airway: Mallampati scale class II Neurological: alert and oriented Last oral intake: >/= 8 hours ASA classification: III Emergent: no Anesthetic plan: proceed Anesthesia type and monitoring: general LMA and standard monitoring Results Review: All pre-operative results and documents have been reviewed as part of the pre-operative evaluation. HTN, hyperlipidemia, VINAY on CPAP, DM fsbs 125. BMI 32. Informed Consent: The patient's anesthetic plan and its attendant risks and benefits were discussed with the patient/family/POA. Questions were solicited and answers provided to the satisfaction of the patient/family/POA.
--- NOTE | 2025-08-27 07:19 | WPDHPUPDATE1 ---
History and Physical Update Update Date/Time: 08/27/25 07:19 History and Physical has been reviewed, including an updated exam of the patient. There are NO changes in the patient's condition. Risks, benefits, and alternatives have been discussed and questions answered. Patient agrees to proceed with procedure.
[2025-08-27] MEDS: ceFAZolin 2 GM in SODIUM CHLORIDE 0.9% IV 50 ML 100 ML IVPB ×2 (07:26→14:52)
[2025-08-27] MEDS: SODIUM CHLORIDE 0.9% IV 37.7 ML, MORPHINE SULFATE INJ (*CRX) 2 MG, ROPivacaine HCL 1% 2... INFILTRATE (07:43)
[2025-08-27] MEDS: TRANEXAMIC ACID 1,000 MG/10 ML AMPUL 1000 MG IV PUSH (09:10)
[2025-08-27] MEDS: LACTATED RINGERS 1,000 ML 30 ML IV CONT ×2 (09:44→09:45)
--- NOTE | 2025-08-27 11:10 | ADMGEN ---
This patient, Juan Diego Bartholomew, was admitted to [facility] Surg Room 303-01. Patient/family oriented to hospital policies and general routines including ID bracelet, bed and alarms, visiting hours, pain management, procedures, bathroom and other care routines, personal items, smoking policy, room service/diet, and visiting hours. Information on how to activate the Rapid Response Team has been discussed. Patient/Family are encouraged to report perceived risks to care and to ask questions if they do not understand what they are told or what they should do.
[2025-08-27] MEDS: FAMOTIDINE 20 MG TABLET PO ×2 (11:58→20:14)
[2025-08-27] MEDS: ASPIRIN 81 MG ENTERIC TABLET PO ×2 (11:59→20:13)
[2025-08-27] MEDS: ACETAMINOPHEN 325 MG TABLET 650 MG PO ×2 (11:59→17:15)
[2025-08-27] MEDS: FINASTERIDE 5 MG TABLET PO (12:00)
[2025-08-27] MEDS: SOLIFENACIN 5 MG TABLET PO (12:01)
--- NOTE | 2025-08-27 13:31 | W.PM.PROC2 ---
Procedure Note - Detailed Date of Procedure 08/27/25 Pre-op Diagnosis Right knee degenerative arthritis. Post-op Diagnosis Same Procedure Performed Custom total knee arthroplasty, right. Surgeon Carroll Hopkins MD Operations And Maintenance Technician Verónica Guzman PA-C Anesthesia General Description of Procedure Preoperative antibiotics were given. The limb was prepped and draped in the usual sterile fashion with a well-padded tourniquet high on the thigh. The limb was exsanguinated and the tourniquet inflated to 300 mmHg during exposure and cementation. A longitudinal incision was created just medial to the patella. A trivector approach to the knee was performed. Arthrotomy was taken down through the joint capsule. No significant releases were initially taken. The femur was exposed and the F1 jig was applied. The coring tool was used to remove the cartilage for the F2 jig to sit flush with the bone. The jig was pinned and the distal cut carefully taken. Caliper measurements confirmed appropriate bony resections according to the preoperative templated plan. The F4 cutting jig for the femur was applied, at the standard rotation. The AP and anterior chamfer cuts were taken. The F5 jig was applied and the posterior chamfer cuts were taken. The tibia was prepared using the T1 jig, after removing cartilage for the jig contact points. Proper alignment was checked with the alignment brant. The tibia was cut using the T1u guide. Gap balancing was performed. Gap measurements were taken and the knee was trialed. Excellent alignment and soft tissue balancing was confirmed. The posterior cruciate ligament was recessed along the proximal tibia. The patella was cut for resurfacing. Three lug holes were drilled. Meniscal remnants were removed. The trial components were assembled. Excellent range of motion and proper soft tissue balancing were confirmed throughout the full range of motion. Patellar tracking was excellent. The knee was copiously irrigated periodically throughout the procedure. The real implants were cemented into position. Excess cement was carefully removed. The wound was closed in layers with interrupted #1 Vicryl suture, 2-0 strata fix suture, 0 strata fix suture, 2-0 strata fix suture. Steri-Strips placed on the skin with the knee flexed. Sterile bulky dressing applied. The patient was brought to the recovery room in stable condition. There were no complications. Implants Conformis Custom total knee arthroplasty. Cemented. Cruciate retaining. 7B insert. 38 mm oval patella. Estimated Blood Loss 50 Drains No Complications No immediate complications Condition Stable Disposition PACU [facility] Billing Surgery - Charge Forward: Surgery Billing
[2025-08-27] MEDS: oxyCODONE/ACETAMINOPHEN (*CRX) 5-325 MG TABLET 1 TABLET PO ×2 (14:25→20:04)
[2025-08-27] MEDS: metFORMIN HCL XR 500 MG TAB.SR.24H 1000 MG PO (16:42)
[2025-08-27] MEDS: METOPROLOL SUCCINATE EXT REL 25 MG TABCR PO (20:04)
[2025-08-27] MEDS: ROSUVASTATIN 10 MG TABLET PO (20:04)
[2025-08-27] MEDS: PANTOPRAZOLE 40 MG TABLET PO (20:04)
[2025-08-27] MEDS: AMITRIPTYLINE HCL 10 MG TABLET PO (20:13)
[2025-08-28] MEDS: ceFAZolin 2 GM in SODIUM CHLORIDE 0.9% IV 50 ML 100 ML IVPB ×2 (00:23→05:29)
[2025-08-28] MEDS: oxyCODONE/ACETAMINOPHEN (*CRX) 5-325 MG TABLET 1 TABLET PO ×2 (00:27→09:25)
[2025-08-28] MEDS: ACETAMINOPHEN 325 MG TABLET 650 MG PO ×2 (00:27→05:29)
[2025-08-28 03:36] VITALS: BP 123/81; PULSE 69; RESP 20; TEMP 36.4; O2SAT 95
[2025-08-28 06:43] LABS: Hematocrit 36.3 % (42.0-52.0); Hemoglobin 12.5 g/dL (14.0-18.0); Immature Granulocyte Percent A 0.6 % (0-0.5); Lymphocytes Absolute Auto 1.11 K/mm3 (0.9-3.2); Mean Corpuscular HGB Conc 34.4 g/dl (32-36); Mean Corpuscular Hemoglobin 30.0 pg (26-34); Mean Corpuscular Volume 87.1 fl (80-100); Nucleated Red Blood Cells Absolute Auto 0.000 K/mm3 (0.0-0.012); Nucleated Red Blood Cells Perc 0.0 % (0.0-0.2); Platelet Count Result 135 k/mm3 (150-375); Red Blood Count 4.17 M/mm3 (4.6-6.20); White Blood Count 10.1 K/mm3 (4.5-10.0)
[2025-08-28 07:12] LABS: Anion Gap 7 mmol/L (4-12); Blood Urea Nitrogen 14 mg/dL (9-20); Calcium 8.5 mg/dL (8.4-10.2); Carbon Dioxide 26 mmol/L (22-30); Chloride 101 mmol/L (98-107); Estimated CRCL calculation 98 ml/min; Estimated Glomerular Filt Rate > 60; Glucose 142 mg/dL (65-110); Potassium 4.3 mmol/L (3.4-5.0); Sodium 134 mmol/L (137-145)
[2025-08-28 08:10] VITALS: BP 127/64; PULSE 69; RESP 16; TEMP 36.6; O2SAT 95
[2025-08-28] MEDS: SENNA/DOCUSATE SODIUM TABLET 2 TAB PO (09:24)
[2025-08-28] MEDS: ASPIRIN 81 MG ENTERIC TABLET PO (09:24)
[2025-08-28] MEDS: metFORMIN HCL XR 500 MG TAB.SR.24H 1000 MG PO (09:24)
[2025-08-28] MEDS: CYCLOBENZAPRINE HCL 5 MG TABLET PO (09:24)
[2025-08-28] MEDS: FINASTERIDE 5 MG TABLET PO (09:24)
[2025-08-28 09:25] VITALS: PULSE 86
[2025-08-28] MEDS: METOPROLOL SUCCINATE EXT REL 25 MG TABCR PO (09:25)
[2025-08-28] MEDS: PANTOPRAZOLE 40 MG TABLET PO (09:25)
[2025-08-28] MEDS: SOLIFENACIN 5 MG TABLET PO (09:25)
[2025-08-28] MEDS: FAMOTIDINE 20 MG TABLET PO (09:25)
--- NOTE | 2025-08-28 10:32 | P.PNOP_ITS ---
Progress Note: A&P Assessment and Plan (1) Status post total right knee replacement: Code(s): Z96.651 - Presence of right artificial knee joint Status: Acute Assessment and Plan: Postop day 1: total knee arthroplasty. Patient tolerated procedure well. No complications. Pain manageable with pain medication. No numbness or tingling. We had a lengthy discussion regarding postoperative wound care, limitations, expectations, and exercises. Patient shows good understanding. He has had initial physical therapy and is tolerating it well. Patient has followup appointment with Dr. Hopkins in 3 weeks. Subjective Subjective Date/Time Seen: 08/28/25 10:32 Interval history: Resting comfortably. Has been up. Notes some discomfort at the quad. Review of Systems Review of Systems: All systems reviewed & are unremarkable except as noted in HPI and below Exam Narrative: 65-year-old overweight male. Resting comfortably in bed. Alert and oriented x3. No acute distress. Wearing compression socks bilaterally. Dressing dry and intact without drainage. Mild swelling. No ecchymosis. No erythema. No hematoma. Range of motion limited due to pain. Calf nontender. Neurologic status intact. No varicosities. Distal pulses palpable. Objective Data Vital Signs Vital Signs: Vital Signs - 24 hr 08/27/25 10:40 08/27/25 10:48 08/27/25 11:20 Temperature 97 F L Pulse Rate 75 76 Respiratory Rate 12 14 18 Blood Pressure 122/86 130/83 Pulse Oximetry 96 95 95 Oxygen Delivery Nasal Cannula Nasal Cannula Nasal Cannula Oxygen Flow Rate 2 2 2 08/27/25 11:25 08/27/25 11:39 08/27/25 12:10 Temperature 97.3 F L 97.3 F L 97 F L Pulse Rate 72 73 70 Respiratory Rate 18 18 14 Blood Pressure 131/76 126/76 139/81 Pulse Oximetry 95 95 96 Oxygen Delivery Oxygen Flow Rate 08/27/25 14:01 08/27/25 14:21 08/27/25 14:50 Temperature 97.0 F L Pulse Rate 81 Respiratory Rate 18 Blood Pressure 130/84 Pulse Oximetry 94 Oxygen Delivery Room Air Room Air Oxygen Flow Rate 08/27/25 16:20 08/27/25 20:04 08/27/25 20:35 Temperature 97.3 F L 96.9 F L Pulse Rate 97 70 77 Respiratory Rate 19 20 Blood Pressure 128/81 120/70 Pulse Oximetry 97 95 Oxygen Delivery Oxygen Flow Rate 08/27/25 23:53 08/28/25 01:26 08/28/25 03:36 Temperature 96.9 F L 97.6 F Pulse Rate 75 69 Respiratory Rate 20 20 Blood Pressure 119/64 123/81 Pulse Oximetry 96 95 Oxygen Delivery CPAP Oxygen Flow Rate 08/28/25 08:10 08/28/25 09:25 Temperature 97.9 F Pulse Rate 69 86 Respiratory Rate 16 Blood Pressure 127/64 Pulse Oximetry 95 Oxygen Delivery Oxygen Flow Rate Intake/Output Intake/Output: Intake & Output 08/25/25 08/26/25 08/27/25 08/28/25 23:59 23:59 23:59 23:59 Intake Total 1230 1350 Balance 1230 1350 Meds/Results Medications: Active Medications Generic Name Dose Route Start Last Admin Trade Name Freq PRN Reason Stop Dose Admin Acetaminophen 650 mg 08/27/25 12:00 08/28/25 05:29 Acetaminophen 325 Mg Tablet PO 650 mg Q6HR LOY Administration Amitriptyline HCl 10 mg 08/27/25 21:00 08/27/25 20:13 Amitriptyline Hcl 10 Mg Tablet PO 10 mg QHS LOY Administration Aspirin 81 mg 08/27/25 10:50 08/28/25 09:24 Aspirin 81 Mg Enteric Tablet PO 81 mg Q12HR LOY Administration Cyclobenzaprine HCl 5 mg 08/27/25 10:50 08/28/25 09:24 Cyclobenzaprine Hcl 5 Mg Tablet PO 5 mg Q8H PRN Administration Spasms Dextrose 12.5 gm 08/27/25 10:50 Dextrose 50% 25 Gm/50 Ml Syringe IV PUSH PRN PRN Hypoglycemia Protocol Diphenhydramine HCl 25 mg 08/27/25 10:50 Diphenhydramine Hcl Inj 50 Mg/Ml Vial IV PUSH Q6H PRN Itching Famotidine 20 mg 08/27/25 10:50 08/28/25 09:25 Famotidine 20 Mg Tablet PO 20 mg Q12HR LOY Administration Finasteride 5 mg 08/27/25 10:50 08/28/25 09:24 Finasteride 5 Mg Tablet PO 5 mg DAILY LOY Administration Glucagon 1 mg 08/27/25 10:50 Glucagon For Inj 1 Mg Vial IM PRN PRN Hypoglycemia Protocol Glucose 15 gm 08/27/25 10:50 Glucose Oral Gel 15 Gm Of Glucse In 37.5 Gm Tube PO PRN PRN Hypoglycemia Protocol Hydromorphone HCl 1 mg 08/27/25 10:50 Hydromorphone Hcl Inj (*Crx) 1 Mg/Ml Syr IV PUSH Q2H PRN Breakthrough Pain Rated 7-10 or NPO Hydromorphone HCl 0.5 mg 08/27/25 10:50 Hydromorphone Hcl Inj (*Crx) 1 Mg/Ml Syr IV PUSH Q2H PRN Breakthrough Pain Rated 4-6 or NPO Ibuprofen 800 mg in 200 mls @ 400 mls/hr 08/27/25 10:50 Caldolor 800 Mg/200 Ml IVPB Q6H PRN Breakthrough Pain Rated 1-3 or NPO Dextrose 1,000 mls @ 100 mls/hr 08/27/25 10:50 Dextrose 5% 1,000 Ml IVPB PRN PRN Hypoglycemia Protocol Metformin HCl 1,000 mg 08/27/25 17:00 08/28/25 09:24 Metformin Hcl Xr 500 Mg Tab.Sr.24h PO 1,000 mg BIDWM LOY Administration Metoprolol Succinate 25 mg 08/27/25 21:00 08/28/25 09:25 Metoprolol Succinate Ext Rel 25 Mg Tabcr PO 25 mg Q12HR LOY Administration Miscellaneous Information 0 each 08/27/25 00:01 08/27/25 11:40 Nonformulary Drug (Tadalafil 5 Mg Tablet) XX 09/26/25 00:00 Not Given CLARIFY LOY Naloxone HCl 0.1 mg 08/27/25 10:50 Naloxone Hcl 0.4 Mg/Ml Vial IV PUSH Q2M PRN Opiate Reversal Non-Formulary Medication 5 mg 08/27/25 10:50 Tadalafil PO 09/26/25 10:49 DAILY LOY Ondansetron HCl 4 mg 08/27/25 10:50 Ondansetron Inj 4 Mg/2 Ml Vial IV PUSH Q4H PRN Nausea And Vomiting Oxycodone/Acetaminophen 1 tablet 08/27/25 10:50 08/28/25 09:25 Oxycodone/Acetaminophen (*Crx) 5-325 Mg Tablet PO 1 tablet Q4H PRN Administration Pain Rated 4-6 Oxycodone/Acetaminophen 1 tab 08/27/25 10:50 Oxycodone/Acetaminophen (*Crx) 10-325 Mg Tablet PO Q6H PRN Pain Rated 7-10 Pantoprazole Sodium 40 mg 08/27/25 21:00 08/28/25 09:25 Pantoprazole 40 Mg Tablet PO 40 mg Q12HR LOY Administration Polyethylene Glycol 17 gm 08/27/25 10:50 08/28/25 09:27 Polyethylene Glycol 3350 17 Gm Powd.Pack PO Not Given QAM LOY Prednisone 5 mg 08/27/25 17:00 08/27/25 16:40 Prednisone 5 Mg Tablet PO 5 mg DAILY@1700 LOY Administration Rosuvastatin Calcium 10 mg 08/27/25 21:00 08/27/25 20:04 Rosuvastatin 10 Mg Tablet PO 10 mg HS LOY Administration Senna/Docusate Sodium 2 tab 08/27/25 10:50 08/28/25 09:24 Senna/Docusate Sodium Tablet PO 2 tab BID LOY Administration Solifenacin 5 mg 08/27/25 10:50 08/28/25 09:25 Solifenacin 5 Mg Tablet PO 5 mg DAILY LOY Administration Tramadol HCl 50 mg 08/27/25 10:50 Tramadol Hcl (*Crx) 50 Mg Tablet PO Q4H PRN Pain Rated 1-3 Radiology Results: ITS Impressions Knee X-Ray 08/27/25 10:19 IMPRESSION: Right total knee arthroplasty hardware with bones and hardware in gross alignment. Labs Labs: Laboratory Results - last 24 hr 08/27/25 08/28/25 16:41 05:30 WBC 10.1 H RBC 4.17 L Hgb 12.5 L Hct 36.3 L MCV 87.1 MCH 30.0 MCHC 34.4 RDW 13.5 Plt Count 135 L MPV 9.6 Immature Gran % (Auto) 0.6 H Neut % (Auto) 82.8 H Lymph % (Auto) 10.9 L [place] % (Auto) 5.2 Eos % (Auto) 0.1 Baso % (Auto) 0.4 Lymph # (Auto) 1.11 [place] # (Auto) 0.5 Eos # (Auto) 0.0 Baso # (Auto) 0.0 Abs Immat Gran (auto) 0.06 H Absolute Neuts (auto) 8.4 H Absolute Nucleated RBC 0.000 Nucleated RBC % 0.0 Sodium 134 L Potassium 4.3 Chloride 101 Carbon Dioxide 26 Anion Gap 7 BUN 14 Creatinine 0.77 Estim Creat Clear Calc 98 Estimated GFR > 60 Glucose 142 H POC Capillary Glucose 234 H Calcium 8.5
== END 2025-08-28 11:45 | disposition home or self-care (01) ==
LOC: ANHSURGERY 07:17 → ANH3MEDSUR 10:57
PROVIDERS: Physician Assistant Surgical; PCP Family Medicine; Visit Provider Orthopaedic Surgery
PROC: (CPT 27447; principal; 2025-08-27 07:30)
DX: M17.11 Unilateral primary osteoarthritis, right knee (principal); E11.9 Type 2 diabetes mellitus without complications
CPT/HCPCS: 27447; 36415; 73560; 80048; 82948; 85025; 86850; 86900; 86901; 97110; 97161; 97166; 97530; 97535; J0690; A9270; C1713; C1776; J0166; J1100; J1171; J1885; J2003; J2250; J2270; J2371; J2405; J2704; J2795; J3010; J3290; J7120; J7512